=== PATIENT | female | born 1960 | race Caucasian/White ===

== ENCOUNTER 2017-09-26 17:23 | Emergency (ER) | payer BC ==
[~2017-09-26] VITALS: Ht 157.5 cm; Wt 92.0 kg
[2017-09-26 17:47] VITALS: BP 139/76
[2017-09-26] MEDS ORDERED: AMOX-580 PO (18:38)
== END 2017-09-26 18:50 | disposition home or self-care (01) ==
LOC: ER 17:24
DX: J32.9 Chronic sinusitis, unspecified (principal); Z88.6 Allergy status to analgesic agent; Z90.710 Acquired absence of both cervix and uterus
CPT/HCPCS: 99283

== ENCOUNTER 2022-03-25 09:56 | Emergency (ER) | payer BC, MEDICARE, SELFPAY ==
[~2022-03-25] VITALS: Ht 152.4 cm; Wt 57.7 kg
[2022-03-25 10:10] VITALS: BP 171/140
[2022-03-25] MEDS ORDERED: ACYC-128 PO (10:41)
[2022-03-25] MEDS ORDERED: ACYC5CRE2 TOP (10:41)
== END 2022-03-25 10:58 | disposition home or self-care (01) ==
LOC: ER 09:56
DX: R21 Rash and other nonspecific skin eruption (principal); Z88.6 Allergy status to analgesic agent; Z79.899 Other long term (current) drug therapy; Z90.49 Acquired absence of other specified parts of digestive tract
CPT/HCPCS: 99281

== ENCOUNTER 2023-03-09 12:00 | Inpatient (IN) | payer MEDICARE, MEDICAID ==
[~2023-03-09] VITALS: Ht 152.4 cm; Wt 57.3 kg
[~2023-03-09 12:00] MED LIST: ACYC5CRE2 TOP
[2023-03-09] MEDS ORDERED: mag hydrox/Alum hydrox/simeth 30ml oral suspension PO PRN (16:00)
[2023-03-09] MEDS ORDERED: magnesium hydroxide 30ml (MOM) UD suspension PO PRN (16:00)
[2023-03-09] MEDS ORDERED: acetaminophen 325mg tablet PO PRN (16:00)
[2023-03-09] MEDS ORDERED: loperamide 2mg capsule PO PRN (16:00)
--- NOTE | 2023-03-09 17:01 | NUR ---
Admit note: [facility] Pt is unable to articulate any plan for safe fdc, food due to fixed delusion that her sister is coming to get her and has a house for her. Pt has history of schizophrenia. Addendum: 03/09/23 at 1731 by Amari Dailey) TRISTAN Correction: Pt has family history of paranoid schizophrenia.
[2023-03-09] MEDS ORDERED: CETI10TA14 PO (17:12)
[2023-03-09] MEDS ORDERED: ESTR1TAB28 PO (17:12)
[2023-03-09] MEDS ORDERED: ACYC-128 PO (17:12)
[2023-03-09] MEDS ORDERED: FLUT16SP26 BOTHNARES (17:12)
[2023-03-09] MEDS ORDERED: LEVO25TA7 PO (17:12)
[2023-03-09] MEDS: acetaminophen 325mg tablet PO PRN (19:45)
[2023-03-09] MEDS: fluticasone nasal spray 16GM bottle NS SCH ×2 (19:58→20:00)
[2023-03-09 20:00] VITALS: BP 118/66; PULSE 59; RESP 12; TEMP 97.4; O2SAT 100
--- NOTE | 2023-03-10 02:51 | NUR ---
NURSING PROGRESS NOTE: Problem Pt [facility] today on 5150 for gravely disabled from [facility] at 1630. Pt is unable to articulate any plan for safe jail, food due to fixed delusion that her sister is coming to get her and has a house for her. Pt has family history of paranoid schizophrenia. Interventions : Maintained a safe and supportive environment, ensured contract for safety, provided clear and simple instructions, attempted to orient to reality, and maintained Q 15min safety checks. Response : Pt. received in room at change of shift. Pt. was noted to be standing in the doorway of her room looking down the turner. Pt. calm and cooperative. When asked about pain, she points to her lower back and states I think it hurts from when I had shingles. PRN Tylenol provided for pain. She denies SI/HI/AH/VH and states Im 62, and think Sheridan been doing alright. This designer writer asked if she would like to go to snack and she stated no, I probably shouldn't have any more to eat .Pt. remained in her room for the evening and went to bed. Plan : Require a safe and supportive environment. Addendum: 03/10/23 at 0455 by Kary Mandujano RN I have reviewed and agree with all interventions, assessments performed and documented by Melissa KENNEDY.
[2023-03-10] MEDS ORDERED: levoTHYROXINE 25mcg tablet PO SCH (07:00)
[2023-03-10 07:30] VITALS: RESP 14; O2SAT 99
[2023-03-10] MEDS: cetirizine 10mg tablet PO SCH (07:33)
[2023-03-10] MEDS: fluticasone nasal spray 16GM bottle NS SCH ×2 (07:38→21:05)
[2023-03-10] MEDS ORDERED: estradiol 1mg tablet PO SCH (08:00)
[2023-03-10 08:10] VITALS: BP 115/65; PULSE 60; RESP 14; TEMP 98.5; O2SAT 99
[2023-03-10 08:42] LABS: CHOLESTEROL 185 MG/DL (0-200); HDL CHOLESTEROL 62 MG/DL (35-60); HEMOGLOBIN A1C 4.7 % (4.5-6.2); LDL CHOLESTEROL 98 MG/DL (50-100); TRIGLYCERIDES 47 MG/DL (20-135)
--- NOTE | 2023-03-10 17:35 | NUR ---
NURSING PROGRESS NOTE: Problem Pt. admitted on 5150 for GD from [facility]. Pt is unable to articulate any plan for safe care home, food due to fixed delusion that her sister is coming to get her and has a house for her. Pt has family history of paranoid schizophrenia. Interventions : Maintained a safe and supportive environment, ensured contract for safety, provided clear and simple instructions, attempted to orient to reality, and maintained Q 15min safety checks. Response : RN received pt. asleep in bed at start of shift. Pt. awoke shortly after and observed pacing the unit. RN greeted pt. and brought her AM Synthroid. pt. appears distraught and confused, stating, Im supposed to have my Synthroid 4 hours before my breakfast. Pt. also requesting to change her Estrace to night time. Pt. took the rest of her medications, during 1:1 interview pt. states, I just dont know really whats going on Pt. handed RN a copy of her 5150, pt. states, They brought me here, because they say I cant get safe care home or food this is not true. Pt. appears fearful and guarded. Pt. denies SI/HI, A/V hallucinations. Pt. appeared more relaxed in the afternoon, pt. appeared to pace the turner. Pt. reports multiple formed, soft BMs today. Plan : Require a safe and supportive environment.
[2023-03-10 19:00] VITALS: RESP 16; O2SAT 100
[2023-03-10 20:00] VITALS: BP 111/63; PULSE 62; RESP 18; TEMP 96.5; O2SAT 100
[2023-03-10] MEDS: OLANZAPINE 5 MG TABLET PO SCH (21:05)
[2023-03-10] MEDS: estradiol 1mg tablet PO SCH (21:06)
--- NOTE | 2023-03-10 22:46 | NUR ---
NURSING PROGRESS NOTE: Problem Pt. admitted on 5150 for GD from [facility]. Pt is unable to articulate any plan for safe long term, food due to fixed delusion that her sister is coming to get her and has a house for her. Pt has family history of paranoid schizophrenia. Interventions : Maintained a safe and supportive environment, ensured contract for safety, provided clear and simple instructions, attempted to orient to reality, and maintained Q 15min safety checks. Response : Pt received on unit at nurses station. Pt is agreeable to 1:1 assessment. Pt appears disheveled. Pt is alert and oriented x3. Pt speech is clear. Pt states she doesnt belong here because she is not mental. She states her sister had told a lie to her son who put her in this hospital. She states that her boyfriend was also attempting to being seduced by her sister. Director Distribution inquired if she was her own decision maker or has assigned to her sister/son. She stated she makes her own decisions. 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 Director Distribution asked if her belongings were in storage, she omitted answering the question. She identifies herself as gypsy. She states her health is in good working order. She has no heart, lung, gastrointestinal, or urinary deficits. She states she is an avid walker. She was concerned about her thyroid pill during 2100hours medication administration. Director Distribution educated patient it will be administered at 0400hrs. She acknowledged. She refused her fluticasone nasal spray. She was compliant with her other medications. Plan : Require a safe and supportive environment.
[2023-03-11] MEDS: levoTHYROXINE 25mcg tablet PO SCH (04:01)
--- NOTE | 2023-03-11 05:34 | NUR ---
PROCESS DEVELOPMENT MANAGER documentation: I have reviewed and agree with all interventions, assessments performed and documented by Emmanuel KENNEDY.
[2023-03-11 07:00] VITALS: RESP 18; O2SAT 96
[2023-03-11 08:00] VITALS: BP 87/37; PULSE 58; RESP 18; TEMP 98; O2SAT 96
[2023-03-11] MEDS: cetirizine 10mg tablet PO SCH (09:24)
[2023-03-11] MEDS: fluticasone nasal spray 16GM bottle NS SCH ×2 (09:37→20:00)
--- NOTE | 2023-03-11 17:16 | NUR ---
NURSING PROGRESS NOTE: Candy Problem Pt. admitted on 5150 for GD from [facility]. Pt is unable to articulate any plan for safe alf, food due to fixed delusion that her sister is coming to get her and has a house for her. Pt has family history of paranoid schizophrenia. Interventions : Maintained a safe and supportive environment, ensured contract for safety, provided clear and simple instructions, attempted to orient to reality, and maintained Q 15min safety checks. Response : Received Pt in bed sleeping in bed w/o distress at the beginning of this shift. Pt cooperative with vitals and ate well at meals and snacks. Pt engaged well with AM assessment and spoke about her sister taking her boyfriend who is now in [place] and her sister who is coming to pick her up. She states her sister got her in here and she can hear her boyfriend talking through the phone that is in the safe. Pt spent most of day in her room but was seen in halls and community room more in afternoon. Pt made a few phone calls in afternoon as well. She presents as cooperative yet anxious and convinced of her delusions. Pt disagrees with the reasoning for her 5150 and showed this RN her detainment paperwork. Plan : Require a safe and supportive environment.
[2023-03-11 19:00] VITALS: RESP 16; O2SAT 100
[2023-03-11 20:00] VITALS: BP 117/66; PULSE 80; RESP 16; TEMP 97.8; O2SAT 100
[2023-03-11] MEDS: OLANZAPINE 5 MG TABLET PO SCH (20:40)
[2023-03-11] MEDS: estradiol 1mg tablet PO SCH (20:40)
--- NOTE | 2023-03-12 03:54 | NUR ---
NURSING PROGRESS NOTE: Candy Problem Pt. admitted on 5150 for GD from [facility]. Pt is unable to articulate any plan for safe fci, food due to fixed delusion that her sister is coming to get her and has a house for her. Pt has family history of paranoid schizophrenia. Interventions : Maintained a safe and supportive environment, ensured contract for safety, provided clear and simple instructions, attempted to orient to reality, and maintained Q 15min safety checks. Response : Received Pt in room. She spend most of her time in her room. She engages with poem writer. She stated poem writer has not given her Estradiol. Director Fundraising reinforced the pill bottle it was administered from. She appears forgetful. She was compliaant with Hs medication pass. She chose to sleep early this evening. Plan : Require a safe and supportive environment.
[2023-03-12] MEDS: levoTHYROXINE 25mcg tablet PO SCH (04:00)
[2023-03-12 07:00] VITALS: RESP 16; O2SAT 99
[2023-03-12] MEDS: cetirizine 10mg tablet PO SCH (07:38)
[2023-03-12 08:00] VITALS: BP 101/59; PULSE 57; RESP 16; TEMP 98.1; O2SAT 99
[2023-03-12] MEDS: fluticasone nasal spray 16GM bottle NS SCH ×2 (08:00→20:50)
[2023-03-12] MEDS ORDERED: LORazepam 1 MG tablet PO ONE (10:25)
--- NOTE | 2023-03-12 15:19 | NUR ---
CASE MANAGEMENT This Stitcher Tape Controlled Machine spoke to Pt's son today, (Kartik Hassan) who confirmed that she does not have an apartment to go back to. He reported that his mom has been getting more and more paranoid/delusional over the past 6 months to a year. He reported this is all new, Pt was not struggling with kind of thinking in the past and led a pretty functional life until she lost her job in 2020. He has placed multiple APS reports as he is concerned for his mom. She has never been in an mental health hospital before and has no outpatient mental health services in the community set up at this point. He is at a loss as how to help her. Salome Galicia, ROOF SHINGLER
--- NOTE | 2023-03-12 15:24 | NUR ---
NURSING PROGRESS NOTE: Shreya Problem: Pt. admitted on 5150 for GD from [facility]. Pt is unable to articulate any plan for safe usp, food due to fixed delusion that her sister is coming to get her and has a house for her. Pt has family history of paranoid schizophrenia. Interventions : Maintained a safe and supportive environment, ensured contract for safety, provided clear and simple instructions, attempted to orient to reality, and maintained Q 15min safety checks. Response : Pt. received asleep and awoke to take her medications without hesitation. She denies SI,HI,AH,VH and has difficulty staying on topic. Pt. presents with good eye contact, confused, and made delusional statements my sister is out there but never comes in Pt. approached this curriculum writer yelling no one took me to my hearing yesterday Foam Fabricator discussed pt. advocates presence on unit yesterday and she stormed off. Pt. became agitated and was difficult to redirect yelling at staff stating; PRN Ativan administered with good results. She ate all meals in the community room and engaged socially with cohorts. She presents as un kept, refused needing a shower, and was encouraged to brush her hair. MRI scheduled for 1600 Plan : Require a safe and supportive environment.
[2023-03-12] MEDS: acetaminophen 325mg tablet PO PRN (17:28)
[2023-03-12 19:00] VITALS: RESP 16; O2SAT 100
[2023-03-12 20:00] VITALS: BP 124/71; PULSE 85; RESP 16; TEMP 98.6; O2SAT 100
[2023-03-12] MEDS: OLANZAPINE 5 MG TABLET PO SCH (20:49)
[2023-03-12] MEDS: estradiol 1mg tablet PO SCH (20:50)
--- NOTE | 2023-03-13 01:02 | NUR ---
NURSING PROGRESS NOTE: Shreya Problem: Pt. admitted on 5150 for GD from [facility]. Pt is unable to articulate any plan for safe mcc, food due to fixed delusion that her sister is coming to get her and has a house for her. Pt has family history of paranoid schizophrenia. Interventions : Maintained a safe and supportive environment, ensured contract for safety, provided clear and simple instructions, attempted to orient to reality, and maintained Q 15min safety checks. Response : Pt. observed spending most of her time in her room working on [employer]. She agreed to interview. She stated her sister as well as other family members had been on unit today multiple times today. She recognizes publicity writer. She does not have an active plan for food, clothing, or mcc. She states her sister was supposed to pick her up. Pt does not have her sisters address nor a plan how to obtain the address. She believes her son was told lies by her sister to place patient in our care. She has not contacted son per her report. Later in the shift, Pt believes her sister was here. She states she is allergic to mold. She can tell when there is mold in the room by the way she feels. She reports she is in good physical health. Pt is compliant with all medications at medication pass. She reported some difficultly initiating sleep. Plan : Require a safe and supportive environment. Addendum: 03/13/23 at 0533 by Emmanuel Peterson LVN, LVN pt slept 6.75 hours.
[2023-03-13] MEDS: levoTHYROXINE 25mcg tablet PO SCH (03:53)
--- NOTE | 2023-03-13 05:19 | NUR ---
HISTORIOGRAPHY TEACHER documentation: I have reviewed and agree with all interventions, assessments performed and documented by Emmanuel KENNEDY.
[2023-03-13 07:00] VITALS: RESP 16; O2SAT 96
[2023-03-13 08:00] VITALS: BP 103/61; PULSE 53; RESP 16; TEMP 98.4; O2SAT 96
[2023-03-13] MEDS: cetirizine 10mg tablet PO SCH (08:32)
[2023-03-13] MEDS: fluticasone nasal spray 16GM bottle NS SCH ×2 (08:32→20:03)
--- NOTE | 2023-03-13 13:58 | NUR ---
Initial: Pt admit DX psychosis PO mostly ~100% regular diet meeting estimated needs. LBM 03/11 per EMR. No nutrition interventions at this time. Will continue to follow. Rec: 1. continue regular diet 2. bowel care per rx 3. weekly wt Addendum: 03/13/23 at [address] Amended: Links added.
--- NOTE | 2023-03-13 16:03 | NUR ---
NURSING PROGRESS NOTE: Shreya Problem: Pt. admitted on 5150 for GD from [facility]. Pt is unable to articulate any plan for safe nursing home, food due to fixed delusion that her sister is coming to get her and has a house for her. Pt has family history of paranoid schizophrenia. Interventions: Maintained a safe and supportive environment, ensured contract for safety, provided clear and simple instructions, attempted to orient to reality, and maintained Q 15min safety checks. Response: Received Pt in bed sleeping in bed w/o distress at the beginning of this shift. Pt cooperative with vitals and took AM meds w/o issue. Pt ate well throughout the day and showered in the morning. Pt using briefs and she is concerned about urinating. Pt vocal today about her family not being able to contact her, then stating they have abandoned her, and also stating they have been here and were not shown the way up to [facility]. Pt engages well in conversation and assessments, yet gets confused and contradicts herself. Pt anxious about her hearing tomorrow and attempts to explain process in a non-threatening way were marginally effective. Plan : Require a safe and supportive environment.
[2023-03-13 19:04] VITALS: RESP 16; O2SAT 96
[2023-03-13 19:50] VITALS: BP 121/56; PULSE 85; RESP 16; TEMP 99.2; O2SAT 94
[2023-03-13] MEDS: estradiol 1mg tablet PO SCH (20:03)
[2023-03-13] MEDS: OLANZAPINE 5 MG TABLET PO SCH (20:03)
[2023-03-13] MEDS: OLANZapine 2.5MG tablet PO SCH (20:50)
--- NOTE | 2023-03-13 21:57 | NUR ---
NURSING PROGRESS NOTE: Problem: Pt. admitted on 5150 for GD from [facility]. Pt is unable to articulate any plan for safe half-way, food due to fixed delusion that her sister is coming to get her and has a house for her. Pt has family history of paranoid schizophrenia. Interventions: Maintained a safe and supportive environment, ensured contract for safety, provided clear and simple instructions, attempted to orient to reality, and maintained Q 15min safety checks. Response: Pt was in her room at change of shift. Pt having delusions that her son was here earlier today and she was not allowed to see him. Assured patient we have visiting hours and her son would be able to see her during those hours. Pt requested more toilet paper and was provided with toilet paper and states "Nobody ever gives me what I need, I always have to beg." Asked if patient needs anything else besides toilet paper and she states "that is all right now." Pt changed in to scrubs to prepare for bed. Pt has some concerns about not being able to leave after court tomorrow and states she would like her cell phone back when she leaves. Assured patient that when she leaves she will get her belongings back. Pt took HS meds, states she doesnt like nasal spray but knows she needs it. Pt went to sleep after med pass. Plan : Require a safe and supportive environment.
[2023-03-14] MEDS: levoTHYROXINE 25mcg tablet PO SCH (05:20)
[2023-03-14 07:00] VITALS: RESP 16; O2SAT 98
[2023-03-14 08:00] VITALS: BP 95/48; PULSE 61; RESP 16; TEMP 98.3; O2SAT 98
[2023-03-14 08:30] VITALS: BP 105/70
[2023-03-14] MEDS: fluticasone nasal spray 16GM bottle NS SCH ×3 (08:51→21:18)
[2023-03-14] MEDS: cetirizine 10mg tablet PO SCH (08:52)
--- NOTE | 2023-03-14 13:16 | NUR ---
5250 Hearing upheld for GD
--- NOTE | 2023-03-14 18:13 | NUR ---
Nursing Progress Note: Problem : Pt. admitted on 5150 for GD from [facility]. Pt is unable to articulate any plan for safe fdc, food due to fixed delusion that her sister is coming to get her and has a house for her. Pt has family history of paranoid schizophrenia. Interventions : Introduced self and established rapport, maintained a safe and supportive environment, ensured contract for safety, provided clear and simple instructions, attempted to orient to reality, and maintained Q 15min safety checks. Response : Received pt. sleeping in bed at the beginning of the shift, she attended breakfast in the Group Room, and afterwards retreated back to her room where she proceeded to isolate throughout much of the shift. 1:1 was completed at bedside, pt. presents as cooperative, restless, withdrawn, and is forgetful at times. She is A&O X3, not to why she is here. Pt. denies any S/I, H/I, or A/V/PALACIOS. She makes what appear to be paranoid delusional statements regarding what she believes to be wrong doing by her family. She states, "My sister was supposed to pick me up, but my son thought she was in [place] so he called and had me brought in. But my sister was here and was with my boyfriend." Pt. attended court today and her hold was upheld, however she exhibited confusion and thought she was leaving. She began gathering all her belongings, requiring redirection with effectiveness. Pt. exhibited restlessness during the afternoon and came to the nurse's station making multiple requests, again requiring some redirection. She reported in a delusional manner that her son had been on the unit today and had spoken with staff. Pt's son was not on the unit today. Plan : Pt. continues to require medication adjustments and a safe and supportive environment.
[2023-03-14 19:00] VITALS: RESP 16; O2SAT 100
[2023-03-14 19:46] VITALS: BP 133/65; PULSE 81; RESP 16; TEMP 97.9; O2SAT 100
[2023-03-14] MEDS: OLANZapine 2.5MG tablet PO SCH (21:18)
[2023-03-14] MEDS: estradiol 1mg tablet PO SCH (21:18)
--- NOTE | 2023-03-15 00:07 | NUR ---
Nursing Progress Note: Problem : Pt. admitted on 5150 for GD from [facility]. Pt is unable to articulate any plan for safe correction, food due to fixed delusion that her sister is coming to get her and has a house for her. Pt has family history of paranoid schizophrenia. Interventions : Introduced self and established rapport, maintained a safe and supportive environment, ensured contract for safety, provided clear and simple instructions, attempted to orient to reality, and maintained Q 15min safety checks. Response : Received pt. in her room at change of shift where she remained for the night. Pt. is pleasant and cooperative. Pt. denies SI/HI/AH/VH stating "no, I have a strong will because of who my father is". Pt. reports that she has been hand washing her under garments because they will get lost in the washer. Pt. took her night medications and went to bed. Plan : Pt. continues to require medication adjustments and a safe and supportive environment.
[2023-03-15] MEDS: levoTHYROXINE 25mcg tablet PO SCH (05:24)
[2023-03-15 07:00] VITALS: RESP 16; O2SAT 99
[2023-03-15 07:51] VITALS: BP 104/60; PULSE 68; RESP 16; TEMP 98.5; O2SAT 99
[2023-03-15] MEDS: cetirizine 10mg tablet PO SCH (09:00)
[2023-03-15] MEDS: fluticasone nasal spray 16GM bottle NS SCH ×2 (09:00→20:23)
--- NOTE | 2023-03-15 14:53 | NUR ---
Nursing Progress Note: Problem : Pt. admitted on 5150 for GD from [facility]. Pt is unable to articulate any plan for safe care home, food due to fixed delusion that her sister is coming to get her and has a house for her. Pt has family history of paranoid schizophrenia. Interventions : Introduced self and established rapport, maintained a safe and supportive environment, ensured contract for safety, provided clear and simple instructions, attempted to orient to reality, and maintained Q 15min safety checks. Response : Received pt. sleeping in bed at the beginning of the shift, she attended breakfast in the Group Room, and afterwards retreated back to her room where she again remained withdrawn. Pt. does come to the nurses' station at intervals to make requests, and is able to make her needs known. She continues to present as cooperative, restless, withdrawn, and is forgetful at times requiring redirection. Pt. continues to deny all mental health s/s, however continues to make what appear to be delusional statements. She states, "I was supposed to leave yesterday, but he released the wrong Candy. My last name starts with an S." This publicity writer attempted to re-orient pt. to reality, however she remained fixed in this delusion. Pt. also reports what appear to be delusions of persecution and is frequently irritable, reporting that her family and staff members here are all against her. She then states, "I don't belong here, I'm not like these other people." Pt. again tells the story of how she was put in her by her son after her sister failed to pick her up. Also her belief that her boyfriend is cheating on her with her sister. This publicity writer completed that MOCA Assessment with pt. and she appeared distracted throughout the assessment. She continues to present with confusion and forgetfulness, and questioned this publicity writer multiple times regarding when she would have court (pt. had court yesterday) and the outcome of the hearing (which pt. has been informed of multiple times). Pt. was later moved to a new room r/t the admission of another peer, and she tolerated this fairly well. She was observed to be up in the Group Room in the afternoon working on a puzzle with another female peer. Plan : Pt. continues to require medication adjustments and a safe and supportive environment.
[2023-03-15 19:00] VITALS: BP 116/74; PULSE 75; RESP 14; TEMP 97.7; O2SAT 97
[2023-03-15] MEDS: OLANZapine 2.5MG tablet PO SCH (20:17)
[2023-03-15] MEDS: estradiol 1mg tablet PO SCH (20:18)
--- NOTE | 2023-03-15 23:41 | NUR ---
Nursing Progress Note: Problem : Pt. admitted on 5150 for GD from [facility]. Pt is unable to articulate any plan for safe residential, food due to fixed delusion that her sister is coming to get her and has a house for her. Pt has family history of paranoid schizophrenia. Interventions : Introduced self and established rapport, maintained a safe and supportive environment, ensured contract for safety, provided clear and simple instructions, and maintained Q 15min safety checks. Response : Patient is pleasant and cooperative with care; compliant with medication. Patient denied SI, HI, A/VH; no apparent delusions expressed, however, hesitant and minimal responses provided. Patient self isolative but observed completing a puzzle and participated in HS snack prior to bed; observed sleeping and does not appear to be having difficulty. Plan : Pt. continues to require medication adjustments and a safe and supportive environment. Addendum: 03/16/23 at 0339 by Rocio Quintanilla RN Patient woke up c/o bugs being in her bed; refuses to accept reality orientation. She is irritable and stating she "was left in that shit hole" pointing to her bedroom.
[2023-03-16] MEDS: levoTHYROXINE 25mcg tablet PO SCH (03:41)
[2023-03-16 07:00] VITALS: RESP 12; O2SAT 99
[2023-03-16 08:00] VITALS: BP 94/49; PULSE 57; RESP 12; TEMP 98.5; O2SAT 99
[2023-03-16] MEDS: OLANZapine 2.5MG tablet PO SCH ×2 (08:33→21:38)
[2023-03-16] MEDS: cetirizine 10mg tablet PO SCH (08:34)
[2023-03-16] MEDS: fluticasone nasal spray 16GM bottle NS SCH ×2 (10:39→19:41)
[2023-03-16 11:00] VITALS: BP 115/71; PULSE 82; RESP 16
--- NOTE | 2023-03-16 15:21 | NUR ---
Nursing Progress Note: Shreya Problem: Pt. admitted on 5150 for GD from [facility]. Pt is unable to articulate any plan for safe fpc, food due to fixed delusion that her sister is coming to get her and has a house for her. Pt has family history of paranoid schizophrenia. Interventions: Introduced self and established rapport, maintained a safe and supportive environment, ensured contract for safety, provided clear and simple instructions, attempted to orient to reality, and maintained Q 15 min safety checks. Response: Patient received sleeping in her room at change of shift with no s/s of distress. Respirations even, unlabored. She awoke before breakfast and was receptive to 1:1 assessment. Pt noted making delusional statements, endorsing AH of her boyfriend saying things to her. Pt stating that she can hear what he says unless the room is too loud. Pt reporting to staff that she is in a relationship with Harvey Higginbotham from [employer]. She was noted yelling in her room this morning requiring staff to intervene. Pt endorsing that her room was too cold. She joined for breakfast in the group room with peers. Pt is A&O x3, not to event, with fixed delusions noted. She denies VH, SI or HI. Patient reported that she has been sleeping much better and drinking water. She desires to leave and go home with her boyfriend soon. Pt was observed to be present on the unit the majority of the shift. She was noted putting together a puzzle in the group room throughout the shift. Pt joined with peers for all meal and snack times. Plan: Pt. continues to require medication adjustments and a safe and supportive environment.
[2023-03-16 19:10] VITALS: RESP 16; O2SAT 98
[2023-03-16 19:47] VITALS: BP 124/40; PULSE 77; RESP 16; TEMP 98.3; O2SAT 98
[2023-03-16 20:30] VITALS: BP 100/62
[2023-03-16] MEDS: estradiol 1mg tablet PO SCH (21:38)
--- NOTE | 2023-03-17 01:29 | NUR ---
Nursing Progress Note: Shreya Problem: Pt. admitted on 5150 for GD from [facility]. Pt is unable to articulate any plan for safe snf, food due to fixed delusion that her sister is coming to get her and has a house for her. Pt has family history of paranoid schizophrenia. Interventions: Introduced self and established rapport, maintained a safe and supportive environment, ensured contract for safety, provided clear and simple instructions, attempted to orient to reality, and maintained Q 15 min safety checks. Response: Received report from AM shift. Pt in room washing her socks in the sink. Pt reported her clothes smells clean when she washes it in the sink and hung dry. Pt pleasant and cooperative. Pt tolerated meds with no issues noted. Pt denies SI, HI, AH/VH. Pt denies paranoia. Pt makes delusional statements, stating her son and sister reported her being delusional is why she is here. Pt reported her boyfriend is Harvey Higginbotham, a senior who makes music. Pt reported her sister wants her in here to steal her boyfriend. Pt reported she will be discharged tomorrow, she will be going home to her sisters house or home with her boyfriend. Pt reported her boyfriend will be picking her up in an airplane. Pt reported her boyfriend met the doctor and that she is not making stuff up. Pt isolate self in room this shift. No s/s of distress at this time. Plan: Pt. continues to require medication adjustments and a safe and supportive environment.
[2023-03-17] MEDS: levoTHYROXINE 25mcg tablet PO SCH (04:10)
[2023-03-17 07:29] VITALS: BP 94/52; PULSE 54; RESP 16; TEMP 98.2; O2SAT 97
[2023-03-17 07:30] VITALS: RESP 16; O2SAT 97
[2023-03-17] MEDS: fluticasone nasal spray 16GM bottle NS SCH ×2 (08:00→20:40)
[2023-03-17] MEDS: OLANZapine 2.5MG tablet PO SCH ×2 (08:13→20:40)
[2023-03-17] MEDS: cetirizine 10mg tablet PO SCH (08:13)
--- NOTE | 2023-03-17 17:49 | NUR ---
Nursing Progress Note: Problem: Pt. admitted on 5150 for GD from [facility]. Pt is unable to articulate any plan for safe detention, food due to fixed delusion that her sister is coming to get her and has a house for her. Pt has family history of paranoid schizophrenia. Interventions: Introduced self and established rapport, maintained a safe and supportive environment, ensured contract for safety, provided clear and simple instructions, attempted to orient to reality, and maintained Q 15 min safety checks. Response: RN received pt. asleep at start of shift. Pt. awoke and took all medications. Pt. ate all meals in the community room. 1:1 done at bedside, pt. denies all psych symptoms, pt. states, I dont really know why they are keeping me here, whatever it is they say on that paper Is not true. Pt. observed putting together puzzles in the community room and watching TV. Pt. observed socializing with female peers. Plan: Pt. continues to require medication adjustments and a safe and supportive environment.
[2023-03-17 19:42] VITALS: BP 103/55; PULSE 67; RESP 16; TEMP 98.7; O2SAT 100
[2023-03-17] MEDS: estradiol 1mg tablet PO SCH (20:40)
--- NOTE | 2023-03-18 04:45 | NUR ---
Nursing Progress Note: Problem : Pt. admitted on 5150 for GD from [facility]. Pt is unable to articulate any plan for safe fci, food due to fixed delusion that her sister is coming to get her and has a house for her. Pt has family history of paranoid schizophrenia. Interventions : Introduced self and established rapport, maintained a safe and supportive environment, ensured contract for safety, provided clear and simple instructions, and maintained Q 15min safety checks. Response : Patient pleasant and cooperative with care; compliant with medication. Denied SI, HI, A/VH; no apparent delusions expressed. She continues to self isolate but participated in HS snack prior to bed; observed sleeping and does not appear to be having difficulty. Plan : Pt. continues to require medication adjustments and a safe and supportive environment.
[2023-03-18] MEDS: levoTHYROXINE 25mcg tablet PO SCH (04:59)
[2023-03-18 07:30] VITALS: BP 103/56; PULSE 53; RESP 16; TEMP 98.1; O2SAT 98
[2023-03-18] MEDS: OLANZapine 2.5MG tablet PO SCH ×2 (07:30→20:15)
[2023-03-18] MEDS: cetirizine 10mg tablet PO SCH (07:30)
[2023-03-18] MEDS: fluticasone nasal spray 16GM bottle NS SCH ×2 (08:00→20:16)
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
[2023-03-18 19:17] VITALS: BP 109/58; PULSE 78; RESP 16; TEMP 98.3; O2SAT 100
[2023-03-18] MEDS: estradiol 1mg tablet PO SCH (20:16)
--- NOTE | 2023-03-19 02:46 | NUR ---
Nursing Progress Note: Problem : Pt. admitted on 5150 for GD from [facility]. Pt is unable to articulate any plan for safe assisted, food due to fixed delusion that her sister is coming to get her and has a house for her. Pt has family history of paranoid schizophrenia. Interventions : Introduced self and established rapport, maintained a safe and supportive environment, ensured contract for safety, provided clear and simple instructions, and maintained Q 15min safety checks. Response : Patient pleasant and cooperative with care; compliant with medication. She c/o "tinnitus" d/t "mold allergy." Patient denied SI, HI, A/VH; conversations are circumstantial at times and she appears to be expressing delusional thought content. She reported the doctor was going to discharge her a couple days ago but they sent the wrong Candy home. Patient continues to report she is going to live with her son in his apartment. She continued to express paranoid thoughts about her sister going through her storage and taking her belongings. Patient was social with peers and participated in HS snack prior to bed; observed sleeping and does not appear to be having difficulty. Plan : Pt. continues to require medication adjustments and a safe and supportive environment.
[2023-03-19] MEDS: levoTHYROXINE 25mcg tablet PO SCH (04:11)
[2023-03-19 07:30] VITALS: RESP 16; O2SAT 98
[2023-03-19 07:43] VITALS: BP 103/61; PULSE 57; RESP 16; TEMP 98.6; O2SAT 98
[2023-03-19] MEDS: cetirizine 10mg tablet PO SCH (08:30)
[2023-03-19] MEDS: fluticasone nasal spray 16GM bottle NS SCH ×2 (08:30→20:27)
[2023-03-19] MEDS: OLANZapine 2.5MG tablet PO SCH (08:30)
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
[2023-03-19 19:15] VITALS: BP 124/74; PULSE 66; RESP 16; TEMP 97.9; O2SAT 100
[2023-03-19 19:27] VITALS: RESP 16; O2SAT 100
[2023-03-19] MEDS: estradiol 1mg tablet PO SCH (20:26)
[2023-03-19] MEDS: OLANZAPINE 5 MG TABLET PO SCH (20:26)
--- NOTE | 2023-03-19 23:08 | NUR ---
Nursing Progress Note: Problem : Pt. admitted on 5150 for GD from [facility]. Pt is unable to articulate any plan for safe snf, food due to fixed delusion that her sister is coming to get her and has a house for her. Pt has family history of paranoid schizophrenia. Interventions : Introduced self and established rapport, maintained a safe and supportive environment, ensured contract for safety, provided clear and simple instructions, and maintained Q 15min safety checks. Response : Patient pleasant and cooperative with care; compliant with medication. Patient denied SI, HI, A/VH; appears to be expressing delusional thought content. Patient social with peers and participated in HS snack prior to bed; observed sleeping and does not appear to be having difficulty. Plan : Pt. continues to require medication adjustments and a safe and supportive environment. Addendum: 03/20/23 at 0312 by Kary Mandujano RN FINANCIAL ADVISOR TRAINEE documentation: I have reviewed and agree with all interventions, assessments performed and documented by NEIL KENNEDY.
[2023-03-20] MEDS: levoTHYROXINE 25mcg tablet PO SCH (03:38)
[2023-03-20] MEDS: OLANZapine 2.5MG tablet PO SCH (07:40)
[2023-03-20] MEDS: fluticasone nasal spray 16GM bottle NS SCH ×2 (07:40→20:15)
[2023-03-20] MEDS: cetirizine 10mg tablet PO SCH (07:40)
[2023-03-20 07:48] VITALS: BP 109/65; PULSE 60; RESP 16; TEMP 97.8; O2SAT 98
[2023-03-20 07:49] VITALS: RESP 16; O2SAT 98
--- NOTE | 2023-03-20 13:15 | NUR ---
Nursing Progress Note: Problem : Pt. admitted on 5150 for GD from [facility]. Pt is unable to articulate any plan for safe mcc, food due to fixed delusion that her sister is coming to get her and has a house for her. Pt has family history of paranoid schizophrenia. Interventions : Introduced self and established rapport, maintained a safe and supportive environment, ensured contract for safety, provided clear and simple instructions, and maintained Q 15min safety checks. Response : Upon arrival to shift noted patient to be sleeping. Calm and quiet this morning. Walking halls and keeping to herself. Pleasant in comparison to yesterday. Delusional statements about discharge plan, The doctor forgot about me for 6 days and finally found my discharge paperwork. Im going home tomorrow. My son is coming to get me and take me home. Denies forgetfulness, SI, HI, AH or VH. Compliant with AM meds. No PRNs given. Will continue to monitor. Plan : Pt. continues to require medication adjustments and a safe and supportive environment.
--- NOTE | 2023-03-20 13:22 | NUR ---
Transferred care to Alan HUDSON. Reported off.
[2023-03-20 19:27] VITALS: BP 111/66; PULSE 64; RESP 16; TEMP 97.5; O2SAT 100
[2023-03-20] MEDS: OLANZAPINE 5 MG TABLET PO SCH (20:15)
[2023-03-20] MEDS: estradiol 1mg tablet PO SCH (20:15)
[2023-03-20] MEDS ORDERED: acetaminophen 325mg tablet PO PRN ×2 (21:15)
[2023-03-20] MEDS ORDERED: loperamide 2mg capsule PO PRN (21:15)
[2023-03-20] MEDS ORDERED: mag hydrox/Alum hydrox/simeth 30ml oral suspension PO PRN (21:15)
[2023-03-20] MEDS ORDERED: magnesium hydroxide 30ml (MOM) UD suspension PO PRN (21:15)
--- NOTE | 2023-03-21 00:11 | NUR ---
Nursing Progress Note: Problem : Pt. admitted on 5150 for GD from [facility]. Pt is unable to articulate any plan for safe senior living, food due to fixed delusion that her sister is coming to get her and has a house for her. Pt has family history of paranoid schizophrenia. Interventions : Introduced self and established rapport, maintained a safe and supportive environment, ensured contract for safety, provided clear and simple instructions, and maintained Q 15min safety checks. Response : Patient pleasant and cooperative with care; compliant with medication. Patient denied SI, HI, A/VH. She handed film writer an address explaining that it was her sister's current address and she plans to stay with her sister "for a little while." She continued on about an outstanding bill with [employer]. Patient social with her roommate but remained in her room and refused HS snack. Observed sleeping and does not appear to be having difficulty. Plan : Pt. continues to require medication adjustments and a safe and supportive environment.
[2023-03-21] MEDS: levoTHYROXINE 25mcg tablet PO SCH (04:18)
[2023-03-21 07:00] VITALS: RESP 18; O2SAT 98
[2023-03-21 07:49] VITALS: BP 93/59; PULSE 61; RESP 18; TEMP 97.8; O2SAT 98
[2023-03-21 08:16] LABS: CHOL/HDL RATIO 2.9 (0.00-4.99); CHOLESTEROL 195 MG/DL (0-200); HDL CHOLESTEROL 68 MG/DL (35-60); LDL CHOLESTEROL 111 MG/DL (50-100); TRIGLYCERIDES 31 MG/DL (20-135)
[2023-03-21] MEDS: OLANZapine 2.5MG tablet PO SCH (08:45)
[2023-03-21] MEDS: cetirizine 10mg tablet PO SCH (08:45)
[2023-03-21] MEDS: fluticasone nasal spray 16GM bottle NS SCH ×2 (08:46→21:13)
--- NOTE | 2023-03-21 15:57 | NUR ---
Nursing Progress Note: Problem: Pt. admitted on 5150 for GD from [facility]. Pt is unable to articulate any plan for safe long-term, food due to fixed delusion that her sister is coming to get her and has a house for her. Pt has family history of paranoid schizophrenia. Interventions: Provided 1:1 morning assessment with therapeutic communication and active listening, medication administration/education/monitoring, provided clear and simple instructions, and maintained Q 15min safety checks. Response: Patient pacing around in her room at the start. Pt compliant with assessment and medications. Pt insist upon discharge she will be staying in an apartment on [address]. She provided this marketing writer the address. Pt complains, "I am bored." She is observed socializing with roommate in the afternoon. Arnoldo A/V hallucinations. Denies SI or plan. Plan: Pt. continues to require medication adjustments and a safe and supportive environment.
[2023-03-21 19:00] VITALS: RESP 16; O2SAT 99
--- NOTE | 2023-03-21 19:33 | NUR ---
Nursing Progress Note: Problem: Pt. admitted on 5150 for GD from [facility]. Pt is unable to articulate any plan for safe long-term, food due to fixed delusion that her sister is coming to get her and has a house for her. Pt has family history of paranoid schizophrenia. Interventions: Provided 1:1 Evening assessment with therapeutic communication and active listening, medication administration/education/monitoring, provided clear and simple instructions, and maintained Q 15min safety checks. Response: Patient is in her room following shift change. 1:1 Interview at bedside. Patient washing her socks in the sink.The patient makes direct eye contact. She speaks in a soft voice. Patient tells this lead technical writer that she is reading a book about Brad Pichardo. "It's not the Elena version." Patient tells this lead technical writer, "I'm feeling really good." She states a normal bowel movement today. She presents with mild delusions, "I might get out of here tomorrow." The patient describes "floaters," in her field of vision, both eyes, nothing new. She denies any S/I, H/I, she denies hallucinations. Plan: Pt. continues to require medication adjustments and a safe and supportive environment.
[2023-03-21 20:00] VITALS: BP 122/58; PULSE 80; RESP 16; TEMP 98.1; O2SAT 100
[2023-03-21] MEDS: estradiol 1mg tablet PO SCH (21:12)
[2023-03-21] MEDS: OLANZAPINE 5 MG TABLET PO SCH (21:13)
[2023-03-22] MEDS: levoTHYROXINE 25mcg tablet PO SCH (04:50)
[2023-03-22 07:00] VITALS: RESP 15; O2SAT 97
[2023-03-22 07:41] VITALS: BP 101/61; PULSE 49; RESP 15; TEMP 97.8; O2SAT 97
[2023-03-22] MEDS: fluticasone nasal spray 16GM bottle NS SCH ×2 (08:00→21:09)
[2023-03-22] MEDS: OLANZapine 2.5MG tablet PO SCH (08:23)
[2023-03-22] MEDS: cetirizine 10mg tablet PO SCH (08:23)
--- NOTE | 2023-03-22 16:09 | NUR ---
Nursing Progress Note: Candy Problem: Pt. admitted on 5150 for GD from [facility]. Pt is unable to articulate any plan for safe halfway, food due to fixed delusion that her sister is coming to get her and has a house for her. Pt has family history of paranoid schizophrenia. Interventions: Provided 1:1 Evening assessment with therapeutic communication and active listening, medication administration/education/monitoring, provided clear and simple instructions, and maintained Q 15min safety checks. Response: Pt awoke at 0645 and nurse introduced herself. Pt. was instantly irritable about her stay here, repeatedly stated she is being held against her will and was requesting a new doctor. Pt is upset because she is being withheld from her family and friends. 1:1 was done at bedside and medications were administered with no issues. Pt denies all MH symptoms. Pt ate meals in the dining room, attended snack and showered this shift. Plan: Pt. continues to require medication adjustments and a safe and supportive environment.
[2023-03-22 19:00] VITALS: BP 116/72; PULSE 74; RESP 14; TEMP 98; O2SAT 100
[2023-03-22] MEDS: OLANZAPINE 5 MG TABLET PO SCH (21:05)
[2023-03-22] MEDS: estradiol 1mg tablet PO SCH (21:09)
[2023-03-23] MEDS: levoTHYROXINE 25mcg tablet PO SCH (05:11)
--- NOTE | 2023-03-23 05:11 | NUR ---
Nursing Progress Note: Problem: Pt. admitted on 5150 for GD from [facility]. Pt is unable to articulate any plan for safe group home, food due to fixed delusion that her sister is coming to get her and has a house for her. Pt has family history of paranoid schizophrenia. Interventions: Provided 1:1 Evening assessment with therapeutic communication and active listening, medication administration/education/monitoring, provided clear and simple instructions, and maintained Q 15min safety checks. Response: Nurse received pt. awake sitting on her bed in her room. 1:1 done at her bedside and night medications were administered with no issues. Pt continues to deny all mental health symptoms. Pt stating she wants to go home. Pt. states her boyfriend Petros Higginbotham will be picking her up once she is discharged and he is currently residing with her sister. It is unknown if these are true or delusional statements. Pt did eat dinner and was calm and cooperative this shift. Pt slept with no issues. Plan: Pt. continues to require medication adjustments and a safe and supportive environment.
[2023-03-23 07:00] VITALS: RESP 14; O2SAT 97
[2023-03-23 08:00] VITALS: BP 97/55; PULSE 56; RESP 14; TEMP 97.7; O2SAT 97
[2023-03-23] MEDS: cetirizine 10mg tablet PO SCH (08:37)
[2023-03-23] MEDS: OLANZapine 2.5MG tablet PO SCH (08:37)
[2023-03-23] MEDS: fluticasone nasal spray 16GM bottle NS SCH ×2 (08:38→20:00)
--- NOTE | 2023-03-23 15:48 | NUR ---
Nursing Progress Note: Shreya Problem: Pt. admitted on 5150 for GD from [facility]. Pt is unable to articulate any plan for safe senior living, food due to fixed delusion that her sister is coming to get her and has a house for her. Pt has family history of paranoid schizophrenia. Interventions: Introduced self and established rapport, maintained a safe and supportive environment, ensured contract for safety, provided clear and simple instructions, attempted to orient to reality, and maintained Q 15 min safety checks. Response: Received Pt in bed and appeared to be sleeping w/o distress at the beginning of this shift. Pt woke for vitals and was cooperative with AM meds and ate breakfast well. Pt engages in conversation, which quickly turns to her wanting to leave. She reports her release papers have been sent downstairs six times. the saw me talking to myself, well I lived by myself for a long time. Pt denies SI/HI, A/V hallucinations. Pt spent time in community room and talked with her roommate until roommate was discharged. She ate meals well and responded well to active listening and caring responses. Plan: Pt. continues to require medication adjustments and a safe and supportive environment.
[2023-03-23 19:00] VITALS: BP 115/55; PULSE 64; RESP 14; TEMP 97.9; O2SAT 97
[2023-03-23] MEDS: OLANZAPINE 5 MG TABLET PO SCH (20:04)
[2023-03-23] MEDS: estradiol 1mg tablet PO SCH (20:04)
--- NOTE | 2023-03-23 23:01 | NUR ---
Nursing Progress Note: Shreya Problem: Pt. admitted on 5150 for GD from [facility]. Pt is unable to articulate any plan for safe half-way, food due to fixed delusion that her sister is coming to get her and has a house for her. Pt has family history of paranoid schizophrenia. Interventions: Introduced self and established rapport, maintained a safe and supportive environment, ensured contract for safety, provided clear and simple instructions, attempted to orient to reality, and maintained Q 15 min safety checks. Response: Pt. in her room at change of shift. She is pleasant and cooperative. Pt. denies SI/HI/AH/VH stating "no, I've never had a problem with that". Pt. took her night medications but did refuse her nasal spray stating "I don't think I need it because I'm allergic to mold and clean things". Pt. ate evening snack in her room and remained there for the night. Observed sleeping with no issues. Plan: Pt. continues to require medication adjustments and a safe and supportive environment.
[2023-03-24] MEDS: levoTHYROXINE 25mcg tablet PO SCH (04:22)
[2023-03-24 07:13] VITALS: BP 100/70; PULSE 50; RESP 16; TEMP 98; O2SAT 98
[2023-03-24 07:45] VITALS: RESP 16; O2SAT 98
[2023-03-24] MEDS: cetirizine 10mg tablet PO SCH (08:13)
[2023-03-24] MEDS: OLANZapine 2.5MG tablet PO SCH (08:13)
[2023-03-24] MEDS: fluticasone nasal spray 16GM bottle NS SCH ×2 (08:30→20:00)
--- NOTE | 2023-03-24 09:50 | NUR ---
F/u 03/24: Pt PO mostly ~100% regular diet meeting estimated needs. LBM 03/22 per EMR. No nutrition interventions at this time. Will continue to follow. Rec: 1. continue regular diet 2. bowel care per rx 3. weekly wt Addendum: 03/24/23 at [address] Amended: Links added.
--- NOTE | 2023-03-24 14:32 | NUR ---
Nursing Progress Note: Problem: Pt. admitted on 5150 for GD from [facility]. Pt is unable to articulate any plan for safe fpc, food due to fixed delusion that her sister is coming to get her and has a house for her. Pt has family history of paranoid schizophrenia. Interventions: Introduced self and established rapport, maintained a safe and supportive environment, ensured contract for safety, provided clear and simple instructions, attempted to orient to reality, and maintained Q 15 min safety checks. Response: Upon arrival to shift noted patient sleeping. Compliant with AM meds. Reports, This is the 8th time the doctor has confused me with the other, Shreya Hassan and discharged her instead, and Im mad. We have the same name and middle name. I told them to check our birthdates. I think shes my cousin. Sheridan never met her. Reports, Im mad at my sister. Shes the one who lied about it and my son believed the lie and thats and why Im still in here. Im not forgetful and I dont have any mental issues. RN offers support and support that shes having difficulty with her family. Patient states, Me too, I only have one sister. My parents last month. Patient denies anxiety or depression. Denies SI, HI, AH or VH. Noted to be well-groomed and wearing clean street clothes. Appears to be sad. Is calm and cooperative. Seen walking halls throughout the day. Will continue to monitor. Plan: Pt. continues to require medication adjustments and a safe and supportive environment.
[2023-03-24 19:00] VITALS: RESP 18; O2SAT 100
[2023-03-24 20:00] VITALS: BP 122/74; PULSE 64; RESP 18; TEMP 97.2; O2SAT 100
[2023-03-24] MEDS: estradiol 1mg tablet PO SCH (20:45)
[2023-03-24] MEDS: OLANZAPINE 5 MG TABLET PO SCH (20:45)
--- NOTE | 2023-03-24 23:57 | NUR ---
Nursing Progress Note: Problem: Pt. admitted on 5150 for GD from [facility]. Pt is unable to articulate any plan for safe correction, food due to fixed delusion that her sister is coming to get her and has a house for her. Pt has family history of paranoid schizophrenia. Interventions: Introduced self and established rapport, maintained a safe and supportive environment, ensured contract for safety, provided clear and simple instructions, attempted to orient to reality, and maintained Q 15 min safety checks. Response: Pt. received walking the unit at change of shift. Pt. was later observed sitting in the community room watching TV. Pt. participated in evening snack. Pt. was in room reading when this assembly instructions writer entered her room w/ night medications. She is medication compliant. Pt. is pleasant and cooperative. She continues to deny SI/HI/AH/VH. She then states "the only thing I ask for are apologies. You know they lied, my son and my sister. That's what got me here". Pt. observed and appears to be sleeping without difficulty. Plan: Pt. continues to require medication adjustments and a safe and supportive environment.
[2023-03-25] MEDS: levoTHYROXINE 25mcg tablet PO SCH (04:41)
[2023-03-25 07:00] VITALS: RESP 15; O2SAT 97
[2023-03-25] MEDS: cetirizine 10mg tablet PO SCH (07:57)
[2023-03-25] MEDS: OLANZapine 2.5MG tablet PO SCH (07:57)
[2023-03-25] MEDS: fluticasone nasal spray 16GM bottle NS SCH ×2 (07:57→20:30)
[2023-03-25 08:00] VITALS: BP 93/44; PULSE 55; RESP 15; TEMP 97.2; O2SAT 97
--- NOTE | 2023-03-25 15:00 | NUR ---
CASE MANAGEMENT Spoke to Pt's son today regarding her discharge plan. He reported that there is no way he can help her find housing at this time. He stated, "Maybe she will just have to fail out on the streets so she can get conserved". Asked him if he or his siblings had looked into Probate Conservatorship. He reported that he had and that it cost $800 dollars to apply and neither he or his brother has the money for that. He reported he applied to [employer] for his mom but was told last week that it is up to a year wait. He reported that the problem with his mother is she believes that her boyfriend is going to get her and he cannot convince her otherwise or get her to look into other options. Salome Galicia, VEGETABLE VENDOR
--- NOTE | 2023-03-25 16:04 | NUR ---
Nursing Progress Note: Shreya Problem: Pt. admitted on 5150 for GD from [facility]. Pt is unable to articulate any plan for safe assisted, food due to fixed delusion that her sister is coming to get her and has a house for her. Pt has family history of paranoid schizophrenia. Interventions: Introduced self and established rapport, maintained a safe and supportive environment, ensured contract for safety, provided clear and simple instructions, attempted to orient to reality, and maintained Q 15 min safety checks. Response: Received Pt in bed and sleeping w/o distress at the beginning of this shift. Pt woke for vitals and was cooperative. She took AM meds and ate breakfast well. Pt was in a pleasant mood, yet quickly reverts to accusing the Dr of sending her release papers to the wrong unit. Today she is convinced that a relative with the same name is here on the unit. I dont know where her room is. Pt denies SI/HI, A/V hallucinations. Pt does not believe anything she says is delusional. She ate well and was seen in halls and engaged in snack times. She has a notebook she writes in and talked with her roommate. Plan: Pt. continues to require medication adjustments and a safe and supportive environment.
[2023-03-25 19:00] VITALS: RESP 16; O2SAT 99
[2023-03-25 20:00] VITALS: BP 111/66; PULSE 74; RESP 16; TEMP 98.5; O2SAT 99
[2023-03-25] MEDS: OLANZAPINE 5 MG TABLET PO SCH (20:30)
[2023-03-25] MEDS: estradiol 1mg tablet PO SCH (20:30)
--- NOTE | 2023-03-26 01:32 | NUR ---
Nursing Progress Note: Candy Problem: Pt. admitted on 5150 for GD from [facility]. Pt is unable to articulate any plan for safe fpc, food due to fixed delusion that her sister is coming to get her and has a house for her. Pt has family history of paranoid schizophrenia. Interventions: Introduced self and established rapport, maintained a safe and supportive environment, ensured contract for safety, provided clear and simple instructions, attempted to orient to reality, and maintained Q 15 min safety checks. Response: Received Pt in her room after eating dinner. Pt calm and mildly irritated at being on [facility]. She was cooperative with vitals and took HS meds w/o issue. Pt irritated at doctors making mistakes r/t her release. Overall pleasant mood, yet remains having no insight into why she is in on [facility], blaming others is a theme. Pt attempts to interact with her roommate and denies MH sxs. Pt reminded this RN about her 0400 sythroid and how important it was that she take it 4 hrs before eating. Pt went to bed and remains sleeping at this time. Will continue to monitor. Plan: Pt. continues to require medication adjustments and a safe and supportive environment.
[2023-03-26] MEDS: levoTHYROXINE 25mcg tablet PO SCH (04:06)
[2023-03-26] MEDS: fluticasone nasal spray 16GM bottle NS SCH ×2 (07:39→20:33)
[2023-03-26] MEDS: OLANZapine 2.5MG tablet PO SCH (07:39)
[2023-03-26] MEDS: cetirizine 10mg tablet PO SCH (07:39)
[2023-03-26 07:49] VITALS: RESP 16; O2SAT 98
[2023-03-26 08:00] VITALS: BP 108/56; PULSE 73; RESP 16; TEMP 98.3; O2SAT 98
[2023-03-26 09:23] VITALS: BP 108/56; PULSE 73; RESP 16; TEMP 98.3; O2SAT 98
--- NOTE | 2023-03-26 15:11 | NUR ---
Nursing Progress Note: Problem: Pt. admitted on 5150 for GD from [facility]. Pt is unable to articulate any plan for safe fpc, food due to fixed delusion that her sister is coming to get her and has a house for her. Pt has family history of paranoid schizophrenia. Interventions: Introduced self and established rapport, maintained a safe and supportive environment, ensured contract for safety, provided clear and simple instructions, attempted to orient to reality, and maintained Q 15 min safety checks. Response: Upon arrival to shift noted patient sleeping. Later on assessment reports, I want to switch doctors because they keep sending the wrong Candy Scarratt home. Denies forgetfulness or MH s/sx. Asked what she knew about her plan of care. States my son will pick me up and she will be staying with her boyfriend Harvey Higginbotham who is in the [employer]. Compliant with AM meds. Walked halls today and supported her cohort. Able to make needs known. Will continue to monitor. Plan: Pt. continues to require medication adjustments and a safe and supportive environment.
[2023-03-26] MEDS ORDERED: bisacodyl 10mg suppository rectal RC ONE (18:55)
[2023-03-26 19:00] VITALS: RESP 18; O2SAT 100
[2023-03-26] MEDS: OLANZAPINE 5 MG TABLET PO SCH (20:34)
[2023-03-26] MEDS: estradiol 1mg tablet PO SCH (20:34)
[2023-03-26 20:41] VITALS: BP 137/73; PULSE 66; RESP 18; TEMP 97.7; O2SAT 100
[2023-03-27] MEDS: levoTHYROXINE 25mcg tablet PO SCH (04:26)
--- NOTE | 2023-03-27 04:49 | NUR ---
Nursing Progress Note: Problem: Pt. admitted on 5150 for GD from [facility]. Pt is unable to articulate any plan for safe assisted, food due to fixed delusion that her sister is coming to get her and has a house for her. Pt has family history of paranoid schizophrenia. Interventions: Introduced self and established rapport, maintained a safe and supportive environment, ensured contract for safety, provided clear and simple instructions, attempted to orient to reality, and maintained Q 15 min safety checks. Response: Received pt. in hallway. Pt is calm and cooperative with care. Pt is stating she hasnt had a BM and is asking what she can do. [employer] Director gave pt. the option of having a suppository or waiting until she can have MOM again. Pt decided to think about it. I had a small BM but is was sticky and black. I had cancer before, how are you going to check for it. [employer] Director encouraged pt. to try the suppository first. Pt came out a short time later and stated, I just had a BM. Pt would not elaborate on size or color. Pt denies SI/HI/AVH. Pt ate snack in day room and was observed watch a movie and interacting with peers. Pt is medication compliant. Monitor for safety. Plan: Pt. continues to require medication adjustments and a safe and supportive environment.
[2023-03-27 07:00] VITALS: RESP 16; O2SAT 97
[2023-03-27] MEDS: cetirizine 10mg tablet PO SCH (07:51)
[2023-03-27] MEDS: OLANZapine 2.5MG tablet PO SCH (07:51)
[2023-03-27] MEDS: fluticasone nasal spray 16GM bottle NS SCH (07:52)
[2023-03-27 08:00] VITALS: BP 112/64; PULSE 57; RESP 16; TEMP 97.4; O2SAT 97
--- NOTE | 2023-03-27 08:43 | NUR ---
Nutrition Consult "beef hurts stomach, needs more veggies, constipation noted": Pt LBM 03/26 receiving PRN MoM 03/26 PO 75-100% regular diet meeting estimated needs. ROMI d/w RN today who reports pt has no such dietary issues or requests at this time. Given this, no nutrition interventions at this time. Addendum: 03/27/23 at [address] Amended: Links added.
[2023-03-27] MEDS ORDERED: FLUT16SP26 BOTHNARES (15:57)
[2023-03-27] MEDS ORDERED: OLAN15TA35 PO (15:57)
[2023-03-27] MEDS ORDERED: ACYC-128 PO (15:57)
[2023-03-27] MEDS ORDERED: LEVO25TA7 PO (15:57)
[2023-03-27] MEDS ORDERED: CETI10TA14 PO (15:57)
[2023-03-27] MEDS ORDERED: ESTR1TAB28 PO (15:57)
--- NOTE | 2023-03-27 17:27 | NUR ---
Nursing Discharge Note Pt discharged from [facility] at 1455 and walked to [facility] to be driven home by her son. Pt in pleasant mood and happy she is leaving. Pt in no acute physical or emotional distress and understands her discharge plan and instructions. Pt did not want or need nicotine replacement and her meds were faxed to her pharmacy.
== END 2023-03-27 16:55 | disposition home or self-care (01) | DRG 885 ==
LOC: ADULT MH 12:00
PROVIDERS: ADMIT Psychiatry & Neurology Psychiatry; ATTEND Psychiatry & Neurology Psychiatry
DX: F29 Unspecified psychosis not due to a substance or known physiological condition (principal); F02.B2 Dementia in other diseases classified elsewhere, moderate, with psychotic disturbance; E03.9 Hypothyroidism, unspecified; B00.9 Herpesviral infection, unspecified; M54.9 Dorsalgia, unspecified; F20.9 Schizophrenia, unspecified; G89.29 Other chronic pain; J30.2 Other seasonal allergic rhinitis; K59.00 Constipation, unspecified; N95.9 Unspecified menopausal and perimenopausal disorder; Z98.1 Arthrodesis status; Z90.710 Acquired absence of both cervix and uterus; Z85.42 Personal history of malignant neoplasm of other parts of uterus; Z81.8 Family history of other mental and behavioral disorders; Z90.722 Acquired absence of ovaries, bilateral; Z88.6 Allergy status to analgesic agent; Z79.899 Other long term (current) drug therapy
CPT/HCPCS: 36415; 70551; 80061; 83036; 84443; 87081

== ENCOUNTER 2023-05-29 14:28 | Emergency (ER) | payer MEDICARE, MEDICAID ==
[~2023-05-29] VITALS: Ht 152.4 cm; Wt 56.7 kg
[~2023-05-29 14:28] MED LIST changes: +ACYC-128 PO; -ACYC5CRE2 TOP; +CETI10TA14 PO; +ESTR1TAB28 PO; +FLUT16SP26 BOTHNARES; +LEVO25TA7 PO; +OLAN15TA35 PO
[2023-05-29 15:20] LABS: BASOPHILS % (AUTO) 0.3 % (0-1); EOSINOPHILS % (AUTO) 0.5 % (0-6); HEMATOCRIT 41.8 % (35.0-45.0); HEMOGLOBIN 13.5 g/dl (12.0-16.0); LYMPHOCYTES # (AUTO) 1.6 X10'3 (1.1-4.8); LYMPHOCYTES % (AUTO) 28.3 % (21-51); MEAN CORPUSCULAR HEMOGLOBIN 31.3 PG (27.0-31.0); MEAN CORPUSCULAR HGB CONC 32.3 g/dL (33.0-36.5); MEAN CORPUSCULAR VOLUME 96.9 FL (78-98); MEAN PLATELET VOLUME 8.2 FL (7.4-10.4); MONOCYTES # (AUTO) 0.3 X10'3 (0-0.9); MONOCYTES % (AUTO) 4.4 % (2-12); NEUTROPHILS # (AUTO) 3.8 X10'3 (1.8-7.7); NEUTROPHILS % (AUTO) 66.5 % (42-75); PLATELET COUNT 229 X10'3 (140-440); RED BLOOD COUNT 4.31 X10'6 (4.20-5.60); RED CELL DISTRIBUTION WIDTH 13.1 % (11.5-14.5); WHITE BLOOD COUNT 5.7 X10'3 (4.5-11.0)
[2023-05-29 15:33] LABS: ALANINE AMINOTRANSFERASE 15 U/L (12-78); ALBUMIN 4.7 G/DL (3.4-5.0); ALBUMIN/GLOBULIN RATIO 1.4 (1.1-1.5); ALKALINE PHOSPHATASE 62 IU/L (46-116); ANION GAP 17 (8-16); ASPARTATE AMINO TRANSFERASE 24 U/L (10-37); BILIRUBIN,TOTAL 1.2 MG/DL (0.1-1.0); BLOOD UREA NITROGEN 13 MG/DL (7-18); BUN/CREATININE RATIO 15.5 (10.0-20.0); CALCIUM 9.4 MG/DL (8.5-10.1); CHLORIDE 100 MMOL/L (99-107); CREATININE 0.84 MG/DL (0.40-0.90); GLUCOSE 67 MG/DL (70-104); POTASSIUM 3.8 MMOL/L (3.5-5.1); SODIUM 135 MMOL/L (135-145); TOTAL CARBON DIOXIDE 17.8 MMOL/L (24-32); TOTAL PROTEIN 8.1 G/DL (6.4-8.2); eCRCL 49 ML/MIN; eGFR 68 ML/MIN
[2023-05-29 15:40] LABS: BILIRUBIN,URINE SMALL (Neg); CLARITY,URINE SLIGHTLY CLOUDY (Clear); COLOR,URINE YELLOW (Yellow); GLUCOSE, URINE NEGATIVE (Neg); KETONES,URINE >=80 mg/dl (Neg); LEUKOCYTE ESTERASE ,URINE NEGATIVE (Neg); NITRITES, URINE NEGATIVE (Neg); OCCULT BLOOD,URINE TRACE-INTACT (Neg); PROTEIN,URINE NEGATIVE (Neg); UROBILINOGEN,URINE 0.2 E.U/dL (0.2-1.0)
[2023-05-29 15:42] LABS: UA COLLECTION TYPE CLN CATCH MIDSTREAM
[2023-05-29 15:54] LABS: MUCUS STRANDS FEW /LPF (Neg); SQUAMOUS EPITHELIAL CELL,UR MANY /LPF (FEW)
[2023-05-29 15:55] LABS: BACTERIA,URINE 2+ /HPF (Neg); TRANSITIONAL EPI CELLS,URINE FEW /HPF; WBC,URINE 0-4 /HPF (0-4)
[2023-05-30] MEDS ORDERED: VALA100031 PO (07:17)
[2023-05-30] MEDS ORDERED: ESTR1.25 PO (07:17)
[2023-05-30] MEDS ORDERED: LEVO25TA2 PO (08:08)
[2023-05-30] MEDS ORDERED: FLUT16SP2 BOTHNARES (08:08)
[2023-05-30] MEDS ORDERED: EST1T PO (08:08)
[2023-05-30] MEDS ORDERED: CETI10TA14 PO (08:08)
[2023-05-30] MEDS ORDERED: OLAN15TA3 PO (08:08)
[2023-05-30] MEDS ORDERED: olanzapine 10mg tablet PO ONE (08:28)
[2023-05-30 14:50] LABS: URINE AMPHETAMINE SCREEN NEGATIVE (Neg); URINE BARBITUATE SCREEN NEGATIVE (Neg); URINE BENZODIAZEPINES SCREEN NEGATIVE (Neg); URINE CANNABINOID SCREEN NEGATIVE (Neg); URINE COCAINE SCREEN NEGATIVE (Neg); URINE METHADONE SCREEN NEGATIVE (Neg); URINE OPIATE SCREEN NEGATIVE (Neg); URINE PHENCYCLIDINE SCREEN NEGATIVE (Neg)
[2023-05-30] MEDS ORDERED: LORazepam 2 mg/ml vial IM ONE (15:40)
[2023-05-30] MEDS ORDERED: LORazepam 1 MG tablet PO ONE (15:45)
[2023-05-30] MEDS: fluticasone nasal spray 16GM bottle NS SCH (20:00)
[2023-05-31] MEDS: fluticasone nasal spray 16GM bottle NS SCH ×2 (08:00→20:00)
[2023-05-31] MEDS: estradiol 1mg tablet PO SCH (08:17)
[2023-05-31] MEDS: cetirizine 10mg tablet PO SCH (08:17)
[2023-05-31] MEDS: levoTHYROXINE 25mcg tablet PO SCH (08:17)
[2023-05-31] MEDS ORDERED: LORazepam 1 MG tablet PO ONE (11:25)
[2023-05-31] MEDS: OLANZAPINE 5 MG TABLET PO SCH (20:25)
[2023-05-31] MEDS ORDERED: haloperidol 1mg tablet PO ONE (21:45)
[2023-06-01] MEDS: cetirizine 10mg tablet PO SCH (07:50)
[2023-06-01] MEDS: levoTHYROXINE 25mcg tablet PO SCH (07:50)
[2023-06-01] MEDS: estradiol 1mg tablet PO SCH (07:58)
[2023-06-01] MEDS: fluticasone nasal spray 16GM bottle NS SCH ×2 (07:58→20:23)
[2023-06-01] MEDS: OLANZAPINE 5 MG TABLET PO SCH (20:24)
[2023-06-02] MEDS: levoTHYROXINE 25mcg tablet PO SCH (07:49)
[2023-06-02] MEDS: cetirizine 10mg tablet PO SCH (07:49)
[2023-06-02] MEDS: estradiol 1mg tablet PO SCH (08:06)
[2023-06-02] MEDS: fluticasone nasal spray 16GM bottle NS SCH ×2 (08:06→20:00)
[2023-06-02] MEDS ORDERED: hydrOXYzine 25 MG tablet PO ONE (10:00)
[2023-06-02] MEDS ORDERED: LORazepam 1 MG tablet PO ONE (10:00)
[2023-06-02] MEDS: OLANZAPINE 5 MG TABLET PO SCH (20:12)
[2023-06-03] MEDS: estradiol 1mg tablet PO SCH (08:09)
[2023-06-03] MEDS: fluticasone nasal spray 16GM bottle NS SCH ×2 (08:09→20:07)
[2023-06-03] MEDS: levoTHYROXINE 25mcg tablet PO SCH (08:10)
[2023-06-03] MEDS: cetirizine 10mg tablet PO SCH (08:20)
[2023-06-03] MEDS: OLANZAPINE 5 MG TABLET PO SCH (20:07)
[2023-06-04] MEDS: fluticasone nasal spray 16GM bottle NS SCH ×2 (08:26→20:31)
[2023-06-04] MEDS: cetirizine 10mg tablet PO SCH (08:26)
[2023-06-04] MEDS: estradiol 1mg tablet PO SCH (08:26)
[2023-06-04] MEDS: levoTHYROXINE 25mcg tablet PO SCH (08:26)
[2023-06-04] MEDS ORDERED: LORazepam 1 MG tablet PO PRN (14:30)
[2023-06-04] MEDS ORDERED: LORazepam 1 MG tablet PO ONE (14:50)
[2023-06-04] MEDS: OLANZAPINE 5 MG TABLET PO SCH (20:31)
[2023-06-05] MEDS: cetirizine 10mg tablet PO SCH (07:36)
[2023-06-05] MEDS: fluticasone nasal spray 16GM bottle NS SCH ×2 (07:36→20:17)
[2023-06-05] MEDS: estradiol 1mg tablet PO SCH (07:36)
[2023-06-05] MEDS: levoTHYROXINE 25mcg tablet PO SCH (07:36)
[2023-06-05] MEDS ORDERED: acetaminophen 325mg tablet PO ONE (19:40)
[2023-06-05] MEDS: OLANZAPINE 5 MG TABLET PO SCH (20:16)
[2023-06-06] MEDS: fluticasone nasal spray 16GM bottle NS SCH ×2 (08:29→20:00)
[2023-06-06] MEDS: cetirizine 10mg tablet PO SCH (08:29)
[2023-06-06] MEDS: levoTHYROXINE 25mcg tablet PO SCH (08:29)
[2023-06-06] MEDS: estradiol 1mg tablet PO SCH (08:29)
[2023-06-06] MEDS: OLANZAPINE 5 MG TABLET PO SCH (21:39)
[2023-06-06] MEDS ORDERED: haloperidol 1mg tablet PO ONE (22:15)
[2023-06-07] MEDS: levoTHYROXINE 25mcg tablet PO SCH (08:25)
[2023-06-07] MEDS: estradiol 1mg tablet PO SCH (08:25)
[2023-06-07] MEDS: fluticasone nasal spray 16GM bottle NS SCH ×2 (08:25→20:27)
[2023-06-07] MEDS: cetirizine 10mg tablet PO SCH (08:25)
[2023-06-07] MEDS: OLANZAPINE 5 MG TABLET PO SCH (20:26)
[2023-06-08] MEDS: estradiol 1mg tablet PO SCH (08:42)
[2023-06-08] MEDS: cetirizine 10mg tablet PO SCH (08:42)
[2023-06-08] MEDS: levoTHYROXINE 25mcg tablet PO SCH (08:42)
[2023-06-08] MEDS: fluticasone nasal spray 16GM bottle NS SCH ×2 (08:43→20:14)
[2023-06-08] MEDS: OLANZAPINE 5 MG TABLET PO SCH (20:15)
[2023-06-09] MEDS ORDERED: LORazepam 1 MG tablet PO PRN (07:35)
[2023-06-09] MEDS: estradiol 1mg tablet PO SCH (08:22)
[2023-06-09] MEDS: cetirizine 10mg tablet PO SCH (08:22)
[2023-06-09] MEDS: levoTHYROXINE 25mcg tablet PO SCH (08:22)
[2023-06-09] MEDS: fluticasone nasal spray 16GM bottle NS SCH ×2 (08:25→20:02)
[2023-06-09] MEDS: OLANZAPINE 5 MG TABLET PO SCH (20:02)
[2023-06-09] MEDS ORDERED: QUEtiapine 25mg tablet PO ONE (21:25)
[2023-06-10] MEDS: levoTHYROXINE 25mcg tablet PO SCH (07:44)
[2023-06-10] MEDS: estradiol 1mg tablet PO SCH (07:44)
[2023-06-10] MEDS: cetirizine 10mg tablet PO SCH (07:44)
[2023-06-10] MEDS: fluticasone nasal spray 16GM bottle NS SCH ×2 (07:45→20:10)
[2023-06-10] MEDS: QUEtiapine 25mg tablet PO SCH ×3 (08:15→20:10)
[2023-06-10] MEDS ORDERED: QUEtiapine 25mg tablet PO SCH (09:00)
[2023-06-10] MEDS ORDERED: quetiapine 100mg tablet PO ONE (18:05)
[2023-06-11] MEDS: estradiol 1mg tablet PO SCH (08:00)
[2023-06-11] MEDS: fluticasone nasal spray 16GM bottle NS SCH ×2 (08:00→19:56)
[2023-06-11] MEDS: cetirizine 10mg tablet PO SCH (09:11)
[2023-06-11] MEDS: levoTHYROXINE 25mcg tablet PO SCH (09:11)
[2023-06-11] MEDS: QUEtiapine 25mg tablet PO SCH ×3 (09:11→19:56)
[2023-06-12] MEDS: levoTHYROXINE 25mcg tablet PO SCH (07:22)
[2023-06-12] MEDS: cetirizine 10mg tablet PO SCH (07:23)
[2023-06-12] MEDS: fluticasone nasal spray 16GM bottle NS SCH ×2 (07:24→19:20)
[2023-06-12] MEDS: estradiol 1mg tablet PO SCH (07:32)
[2023-06-12] MEDS: QUEtiapine 25mg tablet PO SCH ×3 (08:45→19:13)
[2023-06-12] MEDS ORDERED: LORazepam 1 MG tablet PO ONE (19:05)
[2023-06-13] MEDS: estradiol 1mg tablet PO SCH (07:44)
[2023-06-13] MEDS: cetirizine 10mg tablet PO SCH (07:44)
[2023-06-13] MEDS: levoTHYROXINE 25mcg tablet PO SCH (07:44)
[2023-06-13] MEDS: fluticasone nasal spray 16GM bottle NS SCH (07:47)
[2023-06-13 07:59] VITALS: BP 123/65; PULSE 76; O2SAT 98
[2023-06-13] MEDS: QUEtiapine 25mg tablet PO SCH (08:01)
[2023-06-13 08:20] VITALS: RESP 14
[2023-06-13 10:56] VITALS: TEMP 98.3
== END 2023-06-13 10:53 | disposition home or self-care (01) ==
LOC: ER 14:29
DX: F32.A Depression, unspecified (principal); Z20.822 Contact with and (suspected) exposure to COVID-19; F03.90 Unspecified dementia, unspecified severity, without behavioral disturbance, psychotic disturbance, mood disturbance, and anxiety; Z88.8 Allergy status to other drugs, medicaments and biological substances; Z88.6 Allergy status to analgesic agent; Z79.899 Other long term (current) drug therapy
CPT/HCPCS: 36415; 71045; 80053; 80305; 81001; 82948; 84443; 85025; 86592; 87811; 99284; 99285

== ENCOUNTER 2024-06-01 00:44 | Inpatient (IN) | payer MEDICARE, MEDICAID ==
[~2024-06-01] VITALS: Ht 157.5 cm; Wt 70.0 kg
[~2024-06-01 00:44] MED LIST changes: -ACYC-128 PO; +EST1T PO; -ESTR1TAB28 PO; +FLUT16SP2 BOTHNARES; -FLUT16SP26 BOTHNARES; +LEVO25TA2 PO; -LEVO25TA7 PO; +OLAN15TA3 PO; -OLAN15TA35 PO
[2024-06-01] MEDS: normal saline 1000ml 1,000 ML IV ONE ×2 (01:25→02:25)
[2024-06-01 02:00] LABS: BASOPHILS # (AUTO) 0.1 X10'3 (0-0.2); BASOPHILS % (AUTO) 0.6 % (0-1); EOSINOPHILS # (AUTO) 0.2 X10'3 (0-0.9); EOSINOPHILS % (AUTO) 1.9 % (0-6); HEMATOCRIT 41.4 % (35.0-45.0); HEMOGLOBIN 13.8 g/dl (12.0-16.0); LYMPHOCYTES # (AUTO) 3.5 X10'3 (1.1-4.8); LYMPHOCYTES % (AUTO) 38.5 % (21-51); MEAN CORPUSCULAR HEMOGLOBIN 29.9 PG (27.0-31.0); MEAN CORPUSCULAR HGB CONC 33.3 g/dL (33.0-36.5); MEAN PLATELET VOLUME 10.4 FL (7.4-10.4); MONOCYTES # (AUTO) 0.6 X10'3 (0-0.9); MONOCYTES % (AUTO) 6.5 % (2-12); NEUTROPHILS # (AUTO) 4.8 X10'3 (1.8-7.7); NEUTROPHILS % (AUTO) 52.5 % (42-75); PLATELET COUNT 306 X10'3 (140-440); RED CELL DISTRIBUTION WIDTH 14.5 % (11.5-14.5); WHITE BLOOD COUNT 9.1 X10'3 (4.5-11.0)
[2024-06-01 02:31] LABS: ALANINE AMINOTRANSFERASE 145 U/L (12-78); ALBUMIN 3.6 G/DL (3.4-5.0); ALBUMIN/GLOBULIN RATIO 0.8 (1.1-1.5); ALKALINE PHOSPHATASE 91 IU/L (46-116); ANION GAP 14 (8-16); ASPARTATE AMINO TRANSFERASE 56 U/L (10-37); BILIRUBIN,TOTAL 1.1 MG/DL (0.1-1.0); BLOOD UREA NITROGEN 19 MG/DL (7-18); BUN/CREATININE RATIO 19.2 (10.0-20.0); CALCIUM 9.4 MG/DL (8.5-10.1); CHLORIDE 106 MMOL/L (99-107); CREATININE 0.99 MG/DL (0.40-0.90); GLUCOSE 112 MG/DL (70-104); SODIUM 140 MMOL/L (135-145); TOTAL CARBON DIOXIDE 19.8 MMOL/L (24-32); TOTAL PROTEIN 7.9 G/DL (6.4-8.2); eCRCL 45 ML/MIN; eGFR 56 ML/MIN
[2024-06-01 02:33] LABS: BILIRUBIN,URINE MODERATE (Neg); CLARITY,URINE CLEAR (Clear); COLOR,URINE YELLOW (Yellow); GLUCOSE, URINE NEGATIVE (Neg); KETONES,URINE >=80 mg/dl (Neg); LEUKOCYTE ESTERASE ,URINE NEGATIVE (Neg); NITRITES, URINE NEGATIVE (Neg); OCCULT BLOOD,URINE NEGATIVE (Neg); PROTEIN,URINE TRACE mg/dl (Neg)
[2024-06-01 02:36] LABS: PRO BRAIN NATRIURETIC PEPTIDE 58 PG/ML (0-125)
[2024-06-01 02:38] LABS: UA COLLECTION TYPE CLN CATCH MIDSTREAM
[2024-06-01 02:39] LABS: BACTERIA,URINE FEW /HPF (Neg); MUCUS STRANDS NONE SEEN /LPF (Neg); RBC,URINE 0-2 /HPF (0-2); SQUAMOUS EPITHELIAL CELL,UR FEW /LPF (FEW); WBC,URINE NONE SEEN /HPF (0-4)
[2024-06-01] MEDS ORDERED: acetaminophen 325mg tablet PO PRN ×2 (03:55)
[2024-06-01] MEDS ORDERED: mag hydrox/Alum hydrox/simeth 30ml oral suspension PO PRN (03:55)
[2024-06-01] MEDS ORDERED: ondansetron/PF 4mg/2ml inj IV PRN (03:55)
[2024-06-01] MEDS ORDERED: morphine 2 MG/ML inj. syringe IV PRN (03:55)
[2024-06-01] MEDS ORDERED: potassium Cl 40MEQ/1/2NS 520ml 520 ML IV PRN (03:55)
[2024-06-01] MEDS ORDERED: HYDROcodone/acetaminophen 5mg/325mg tablet PO PRN (03:55)
[2024-06-01] MEDS ORDERED: magnesium sulf-water 2g/50mL 50 ML IV PRN (03:55)
[2024-06-01] MEDS ORDERED: potassium Cl 20 mEq SR tablet PO PRN ×2 (03:55)
[2024-06-01] MEDS ORDERED: magnesium hydroxide 30ml (MOM) UD suspension PO PRN (03:55)
[2024-06-01] MEDS ORDERED: magnesium Cl slow-release 64mg tablet PO PRN (03:55)
[2024-06-01] MEDS ORDERED: magnesium sulf-water 4G/100mL 100 ML IV PRN (03:55)
[2024-06-01 04:47] LABS: INR 1.1 INR
[2024-06-01] MEDS: normal saline 1000ml 1,000 ML IV SCH (04:50)
[2024-06-01 04:59] LABS: POTASSIUM 4.1 MMOL/L (3.5-5.1); THYROID STIMULATING HORMONE 2.11 ulU/ml (0.34-4.50)
[2024-06-01 05:01] LABS: URINE AMPHETAMINE SCREEN NEGATIVE (Neg); URINE BARBITUATE SCREEN NEGATIVE (Neg); URINE BENZODIAZEPINES SCREEN NEGATIVE (Neg); URINE CANNABINOID SCREEN NEGATIVE (Neg); URINE COCAINE SCREEN NEGATIVE (Neg); URINE METHADONE SCREEN NEGATIVE (Neg); URINE OPIATE SCREEN NEGATIVE (Neg); URINE PHENCYCLIDINE SCREEN NEGATIVE (Neg)
[2024-06-01] MEDS: K and/or MAG REPLACEMENT MC SCH (06:16)
[2024-06-01] MEDS: docusate sod 100mg capsule PO SCH (07:19)
[2024-06-01] MEDS: heparin, porcine 5000 units/ml vial SQ SCH (07:50)
[2024-06-01] MEDS: thiamine 100mg/ml 2ml inj. IV SCH (07:50)
[2024-06-01 17:00] VITALS: BP 124/63; PULSE 84; RESP 16; TEMP 98; O2SAT 98
[2024-06-01 20:00] VITALS: RESP 18
[2024-06-01 22:00] VITALS: BP 138/79; PULSE 80; RESP 18; TEMP 98.1; O2SAT 96
[2024-06-02 06:00] VITALS: BP 115/78; PULSE 64; RESP 15; TEMP 97.7; O2SAT 99
[2024-06-02 07:00] LABS: BASOPHILS % (AUTO) 0.5 % (0-1); EOSINOPHILS # (AUTO) 0.1 X10'3 (0-0.9); EOSINOPHILS % (AUTO) 2.6 % (0-6); HEMATOCRIT 35.2 % (35.0-45.0); HEMOGLOBIN 11.7 g/dl (12.0-16.0); LYMPHOCYTES # (AUTO) 2.2 X10'3 (1.1-4.8); LYMPHOCYTES % (AUTO) 38.4 % (21-51); MEAN CORPUSCULAR HEMOGLOBIN 30.1 PG (27.0-31.0); MEAN CORPUSCULAR HGB CONC 33.3 g/dL (33.0-36.5); MEAN CORPUSCULAR VOLUME 90.3 FL (78-98); MEAN PLATELET VOLUME 9.7 FL (7.4-10.4); MONOCYTES # (AUTO) 0.3 X10'3 (0-0.9); MONOCYTES % (AUTO) 5.9 % (2-12); NEUTROPHILS # (AUTO) 2.9 X10'3 (1.8-7.7); NEUTROPHILS % (AUTO) 52.6 % (42-75); PLATELET COUNT 185 X10'3 (140-440); RED BLOOD COUNT 3.89 X10'6 (4.20-5.60); WHITE BLOOD COUNT 5.6 X10'3 (4.5-11.0)
[2024-06-02 07:15] LABS: ALANINE AMINOTRANSFERASE 101 U/L (12-78); ALBUMIN 2.9 G/DL (3.4-5.0); ALBUMIN/GLOBULIN RATIO 0.9 (1.1-1.5); ALKALINE PHOSPHATASE 71 IU/L (46-116); ANION GAP 10 (8-16); ASPARTATE AMINO TRANSFERASE 37 U/L (10-37); BILIRUBIN,TOTAL 0.7 MG/DL (0.1-1.0); BLOOD UREA NITROGEN 8 MG/DL (7-18); BUN/CREATININE RATIO 13.1 (10.0-20.0); CALCIUM 8.4 MG/DL (8.5-10.1); CHLORIDE 110 MMOL/L (99-107); CREATININE 0.61 MG/DL (0.40-0.90); GLUCOSE 61 MG/DL (70-104); MAGNESIUM 1.8 MG/DL (1.5-2.4); PHOSPHORUS 2.5 MG/DL (2.3-4.5); POTASSIUM 3.6 MMOL/L (3.5-5.1); SODIUM 143 MMOL/L (135-145); TOTAL CARBON DIOXIDE 22.7 MMOL/L (24-32); TOTAL PROTEIN 6.2 G/DL (6.4-8.2); eCRCL 74 ML/MIN; eGFR > 90 ML/MIN
[2024-06-02 08:00] VITALS: RESP 16; O2SAT 94
[2024-06-02] MEDS: PERFLUTREN PROTEIN-A MICROSPHR (Optison) 0.22 MG/ML 3ML VIAL IV ONE (08:00)
[2024-06-02 10:00] VITALS: BP 114/73; PULSE 69; RESP 16; TEMP 97.1; O2SAT 94
[2024-06-02] MEDS: LORazepam 2 mg/ml vial IV SCH (10:30)
[2024-06-02 18:00] VITALS: BP 116/68; PULSE 66; RESP 18; TEMP 97.9; O2SAT 97
[2024-06-02 20:00] VITALS: RESP 18; O2SAT 96
[2024-06-02 22:00] VITALS: BP 110/56; PULSE 71; RESP 16; TEMP 96.7; O2SAT 96
[2024-06-03 06:00] VITALS: BP 123/68; PULSE 60; RESP 14; TEMP 98.9; O2SAT 98
[2024-06-03 06:51] LABS: ALANINE AMINOTRANSFERASE 84 U/L (12-78); ALBUMIN 2.8 G/DL (3.4-5.0); ALBUMIN/GLOBULIN RATIO 0.8 (1.1-1.5); ALKALINE PHOSPHATASE 71 IU/L (46-116); ANION GAP 10 (8-16); ASPARTATE AMINO TRANSFERASE 34 U/L (10-37); BILIRUBIN,TOTAL 0.7 MG/DL (0.1-1.0); BLOOD UREA NITROGEN 4 MG/DL (7-18); BUN/CREATININE RATIO 6.5 (10.0-20.0); CALCIUM 8.2 MG/DL (8.5-10.1); CHLORIDE 109 MMOL/L (99-107); CREATININE 0.62 MG/DL (0.40-0.90); GLUCOSE 66 MG/DL (70-104); MAGNESIUM 1.7 MG/DL (1.5-2.4); PHOSPHORUS 2.8 MG/DL (2.3-4.5); SODIUM 139 MMOL/L (135-145); TOTAL PROTEIN 6.2 G/DL (6.4-8.2); eCRCL 73 ML/MIN; eGFR > 90 ML/MIN
[2024-06-03 06:52] LABS: POTASSIUM 4.2 MMOL/L (3.5-5.1)
[2024-06-03 06:56] LABS: BASOPHILS % (AUTO) 0.7 % (0-1); HEMATOCRIT 36.8 % (35.0-45.0); HEMOGLOBIN 12.3 g/dl (12.0-16.0); LYMPHOCYTES # (AUTO) 1.7 X10'3 (1.1-4.8); LYMPHOCYTES % (AUTO) 35.3 % (21-51); MEAN CORPUSCULAR HEMOGLOBIN 30.3 PG (27.0-31.0); MEAN CORPUSCULAR HGB CONC 33.5 g/dL (33.0-36.5); MEAN CORPUSCULAR VOLUME 90.2 FL (78-98); MEAN PLATELET VOLUME 10.2 FL (7.4-10.4); MONOCYTES # (AUTO) 0.2 X10'3 (0-0.9); MONOCYTES % (AUTO) 4.5 % (2-12); NEUTROPHILS # (AUTO) 2.9 X10'3 (1.8-7.7); NEUTROPHILS % (AUTO) 58.5 % (42-75); PLATELET COUNT 151 X10'3 (140-440); RED BLOOD COUNT 4.08 X10'6 (4.20-5.60); RED CELL DISTRIBUTION WIDTH 13.9 % (11.5-14.5); WHITE BLOOD COUNT 4.9 X10'3 (4.5-11.0)
[2024-06-03 08:00] VITALS: RESP 14; O2SAT 98
[2024-06-03] MEDS: dextrose 5%-1/2 normal saline 1,000 ML IV SCH (09:38)
[2024-06-03 10:00] VITALS: BP 137/82; PULSE 87; RESP 16; TEMP 97; O2SAT 99
[2024-06-03] MEDS: LORazepam 2 mg/ml vial IV SCH (14:57)
[2024-06-03 18:00] VITALS: BP 112/70; PULSE 82; RESP 20; TEMP 98.2; O2SAT 99
[2024-06-03 20:00] VITALS: RESP 20; O2SAT 99
[2024-06-03 22:00] VITALS: BP 114/67; PULSE 83; RESP 15; TEMP 98.6; O2SAT 97
[2024-06-04 06:00] VITALS: BP 108/66; PULSE 83; RESP 14; TEMP 97.5; O2SAT 97
[2024-06-04 06:00] LABS: BASOPHILS % (AUTO) 0.4 % (0-1); EOSINOPHILS # (AUTO) 0.1 X10'3 (0-0.9); EOSINOPHILS % (AUTO) 1.5 % (0-6); HEMATOCRIT 33.9 % (35.0-45.0); HEMOGLOBIN 11.6 g/dl (12.0-16.0); LYMPHOCYTES # (AUTO) 1.8 X10'3 (1.1-4.8); LYMPHOCYTES % (AUTO) 18.9 % (21-51); MEAN CORPUSCULAR HEMOGLOBIN 30.2 PG (27.0-31.0); MEAN CORPUSCULAR HGB CONC 34.2 g/dL (33.0-36.5); MEAN CORPUSCULAR VOLUME 88.2 FL (78-98); MEAN PLATELET VOLUME 9.6 FL (7.4-10.4); MONOCYTES # (AUTO) 0.6 X10'3 (0-0.9); MONOCYTES % (AUTO) 6.7 % (2-12); NEUTROPHILS % (AUTO) 72.5 % (42-75); PLATELET COUNT 186 X10'3 (140-440); RED BLOOD COUNT 3.85 X10'6 (4.20-5.60); RED CELL DISTRIBUTION WIDTH 13.6 % (11.5-14.5); WHITE BLOOD COUNT 9.7 X10'3 (4.5-11.0)
[2024-06-04 06:42] LABS: ALANINE AMINOTRANSFERASE 61 U/L (12-78); ALBUMIN 2.4 G/DL (3.4-5.0); ALBUMIN/GLOBULIN RATIO 0.7 (1.1-1.5); ALKALINE PHOSPHATASE 65 IU/L (46-116); ANION GAP 10 (8-16); ASPARTATE AMINO TRANSFERASE 39 U/L (10-37); BLOOD UREA NITROGEN 1 MG/DL (7-18); BUN/CREATININE RATIO 1.7 (10.0-20.0); CALCIUM 8.1 MG/DL (8.5-10.1); CHLORIDE 104 MMOL/L (99-107); CREATININE 0.59 MG/DL (0.40-0.90); GLUCOSE 136 MG/DL (70-104); MAGNESIUM 1.5 MG/DL (1.5-2.4); PHOSPHORUS 1.8 MG/DL (2.3-4.5); SODIUM 137 MMOL/L (135-145); TOTAL CARBON DIOXIDE 23.3 MMOL/L (24-32); TOTAL PROTEIN 5.8 G/DL (6.4-8.2); eCRCL 76 ML/MIN; eGFR > 90 ML/MIN
[2024-06-04 06:54] LABS: POTASSIUM 2.9 MMOL/L (3.5-5.1)
[2024-06-04 08:00] VITALS: RESP 16; O2SAT 99
[2024-06-04] MEDS ORDERED: magnesium sulf-water 4G/100mL 100 ML IV PRN (09:30)
[2024-06-04] MEDS ORDERED: magnesium Cl slow-release 64mg tablet PO PRN (09:30)
[2024-06-04] MEDS ORDERED: potassium Cl 20 mEq SR tablet PO PRN (09:30)
[2024-06-04] MEDS ORDERED: magnesium sulf-water 2g/50mL 50 ML IV PRN (09:30)
[2024-06-04 10:00] VITALS: BP 128/70; PULSE 72; RESP 15; TEMP 98.6; O2SAT 97
[2024-06-04] MEDS: potassium Cl 40MEQ/1/2NS 520ml 520 ML IV PRN (10:54)
[2024-06-04 18:00] VITALS: BP 116/66; PULSE 78; RESP 15; TEMP 98.1; O2SAT 98
[2024-06-04 22:00] VITALS: BP 123/70; PULSE 64; RESP 16; TEMP 97.4; O2SAT 90
[2024-06-05] MEDS: LidoCAINE 2% Topical Jelly 11mL syringe (UROJET) TOP ONE (00:46)
[2024-06-05 06:00] VITALS: BP 125/70; PULSE 80; RESP 16; TEMP 97; O2SAT 99
[2024-06-05 08:15] LABS: BASOPHILS % (AUTO) 0.4 % (0-1); EOSINOPHILS # (AUTO) 0.1 X10'3 (0-0.9); EOSINOPHILS % (AUTO) 2.8 % (0-6); HEMATOCRIT 35.3 % (35.0-45.0); HEMOGLOBIN 12.2 g/dl (12.0-16.0); LYMPHOCYTES # (AUTO) 1.7 X10'3 (1.1-4.8); LYMPHOCYTES % (AUTO) 30.5 % (21-51); MEAN CORPUSCULAR HEMOGLOBIN 30.4 PG (27.0-31.0); MEAN CORPUSCULAR HGB CONC 34.7 g/dL (33.0-36.5); MEAN CORPUSCULAR VOLUME 87.7 FL (78-98); MEAN PLATELET VOLUME 9.3 FL (7.4-10.4); MONOCYTES # (AUTO) 0.4 X10'3 (0-0.9); MONOCYTES % (AUTO) 6.8 % (2-12); NEUTROPHILS # (AUTO) 3.2 X10'3 (1.8-7.7); NEUTROPHILS % (AUTO) 59.5 % (42-75); PLATELET COUNT 189 X10'3 (140-440); RED BLOOD COUNT 4.02 X10'6 (4.20-5.60); RED CELL DISTRIBUTION WIDTH 13.5 % (11.5-14.5); WHITE BLOOD COUNT 5.4 X10'3 (4.5-11.0)
[2024-06-05 08:22] LABS: ALANINE AMINOTRANSFERASE 56 U/L (12-78); ALBUMIN 2.6 G/DL (3.4-5.0); ALBUMIN/GLOBULIN RATIO 0.7 (1.1-1.5); ALKALINE PHOSPHATASE 71 IU/L (46-116); ANION GAP 5 (8-16); ASPARTATE AMINO TRANSFERASE 33 U/L (10-37); BILIRUBIN,TOTAL 0.8 MG/DL (0.1-1.0); BLOOD UREA NITROGEN 1 MG/DL (7-18); BUN/CREATININE RATIO 2.2 (10.0-20.0); CALCIUM 8.7 MG/DL (8.5-10.1); CHLORIDE 108 MMOL/L (99-107); CREATININE 0.46 MG/DL (0.40-0.90); GLUCOSE 85 MG/DL (70-104); PHOSPHORUS 2.5 MG/DL (2.3-4.5); POTASSIUM 3.9 MMOL/L (3.5-5.1); SODIUM 139 MMOL/L (135-145); TOTAL CARBON DIOXIDE 25.9 MMOL/L (24-32); TOTAL PROTEIN 6.1 G/DL (6.4-8.2); eCRCL 98 ML/MIN; eGFR > 90 ML/MIN
[2024-06-05 08:49] LABS: MAGNESIUM 1.5 MG/DL (1.5-2.4)
[2024-06-05 10:00] VITALS: BP 137/71; PULSE 76; RESP 16; TEMP 97.8; O2SAT 99
[2024-06-05] MEDS ORDERED: LORazepam 1 MG tablet PO PRN (14:00)
[2024-06-05 18:00] VITALS: BP 135/73; PULSE 84; RESP 16; TEMP 98.8; O2SAT 96
[2024-06-05 18:30] VITALS: O2SAT 97
[2024-06-05] MEDS: ARGININE/GLUTAMINE/CALCIUM BMB (JUVEN 19.3GM PKT) 1 EACH POWD.PACK PO SCH (20:00)
[2024-06-05 22:00] VITALS: BP 125/58; PULSE 65; RESP 16; TEMP 98.3; O2SAT 91
[2024-06-06] MEDS: LORazepam 1 MG tablet PO PRN (00:45)
[2024-06-06] MEDS: morphine 2 MG/ML inj. syringe IV PRN (03:15)
[2024-06-06 06:29] LABS: BASOPHILS % (AUTO) 0.3 % (0-1); EOSINOPHILS # (AUTO) 0.1 X10'3 (0-0.9); EOSINOPHILS % (AUTO) 1.5 % (0-6); HEMATOCRIT 34.8 % (35.0-45.0); HEMOGLOBIN 12.3 g/dl (12.0-16.0); LYMPHOCYTES # (AUTO) 1.9 X10'3 (1.1-4.8); MEAN CORPUSCULAR HEMOGLOBIN 30.9 PG (27.0-31.0); MEAN CORPUSCULAR HGB CONC 35.3 g/dL (33.0-36.5); MEAN CORPUSCULAR VOLUME 87.5 FL (78-98); MONOCYTES # (AUTO) 0.6 X10'3 (0-0.9); MONOCYTES % (AUTO) 6.7 % (2-12); NEUTROPHILS # (AUTO) 5.7 X10'3 (1.8-7.7); NEUTROPHILS % (AUTO) 68.5 % (42-75); PLATELET COUNT 208 X10'3 (140-440); RED BLOOD COUNT 3.98 X10'6 (4.20-5.60); WHITE BLOOD COUNT 8.3 X10'3 (4.5-11.0)
[2024-06-06 06:43] VITALS: BP 141/75; PULSE 80; RESP 17; TEMP 97.8; O2SAT 94
[2024-06-06 07:28] LABS: ALANINE AMINOTRANSFERASE 45 U/L (12-78); ALBUMIN 2.5 G/DL (3.4-5.0); ALBUMIN/GLOBULIN RATIO 0.7 (1.1-1.5); ALKALINE PHOSPHATASE 69 IU/L (46-116); ANION GAP 8 (8-16); ASPARTATE AMINO TRANSFERASE 26 U/L (10-37); BILIRUBIN,TOTAL 0.6 MG/DL (0.1-1.0); BLOOD UREA NITROGEN 0 MG/DL (7-18); CALCIUM 8.5 MG/DL (8.5-10.1); CHLORIDE 102 MMOL/L (99-107); CREATININE 0.53 MG/DL (0.40-0.90); GLUCOSE 143 MG/DL (70-104); MAGNESIUM 1.5 MG/DL (1.5-2.4); PHOSPHORUS 2.9 MG/DL (2.3-4.5); POTASSIUM 3.2 MMOL/L (3.5-5.1); SODIUM 138 MMOL/L (135-145); eCRCL 85 ML/MIN; eGFR > 90 ML/MIN
[2024-06-06 08:00] VITALS: RESP 16
[2024-06-06 10:52] VITALS: BP 127/82; PULSE 95; RESP 17; TEMP 98.6; O2SAT 95
[2024-06-06] MEDS: LORazepam 1 MG tablet NG SCH (11:09)
[2024-06-06 18:00] VITALS: BP 120/75; PULSE 88; RESP 14; TEMP 97.3; O2SAT 97
[2024-06-06 20:45] VITALS: RESP 14; O2SAT 95
[2024-06-06 22:00] VITALS: BP 111/75; PULSE 66; RESP 15; TEMP 100.4; O2SAT 98
[2024-06-07 06:00] VITALS: BP 142/72; PULSE 102; RESP 11; TEMP 98.3; O2SAT 91
[2024-06-07 08:00] VITALS: RESP 14; O2SAT 95
[2024-06-07 10:00] VITALS: BP 137/61; PULSE 91; RESP 14; TEMP 98.3; O2SAT 95
[2024-06-07] MEDS ORDERED: magnesium sulf-water 2g/50mL 50 ML IV PRN (11:05)
[2024-06-07] MEDS ORDERED: magnesium sulf-water 4G/100mL 100 ML IV PRN (11:05)
[2024-06-07] MEDS ORDERED: potassium Cl 40MEQ/1/2NS 520ml 520 ML IV PRN (11:05)
[2024-06-07 18:00] VITALS: BP 134/67; PULSE 95; RESP 21; TEMP 98; O2SAT 98
[2024-06-07 20:00] VITALS: RESP 21; O2SAT 98
[2024-06-07] MEDS: docusate sodium 100mg/10ml UD cup NG SCH (20:08)
[2024-06-07 22:00] VITALS: BP 129/70; PULSE 94; RESP 14; TEMP 97.9; O2SAT 98
[2024-06-08 06:00] VITALS: BP 118/60; PULSE 89; RESP 16; TEMP 97.8; O2SAT 97
[2024-06-08 10:00] VITALS: BP 99/46; PULSE 89; RESP 22; TEMP 97.9
[2024-06-08] MEDS: HYDROcodone/acetaminophen 10/325mg tab PO PRN (17:33)
[2024-06-08 18:00] VITALS: BP 133/59; PULSE 98; RESP 20; TEMP 98; O2SAT 99
[2024-06-08 22:00] VITALS: BP 105/63; PULSE 101; RESP 20; TEMP 98.9; O2SAT 99
[2024-06-09 06:00] VITALS: BP 134/63; PULSE 101; RESP 18; TEMP 98.2; O2SAT 91
[2024-06-09] MEDS: levoTHYROXINE 25mcg tablet PO SCH (08:32)
[2024-06-09 09:00] VITALS: RESP 18; O2SAT 93
[2024-06-09 10:00] VITALS: BP 125/72; PULSE 123; RESP 22; TEMP 98.3; O2SAT 92
[2024-06-09 16:56] VITALS: O2SAT 94
[2024-06-09 18:00] VITALS: BP 94/54; PULSE 115; RESP 26; TEMP 98.9; O2SAT 92
[2024-06-09 22:00] VITALS: BP 111/59; PULSE 117; RESP 15; TEMP 100.8; O2SAT 97
[2024-06-10 06:00] VITALS: BP 102/62; PULSE 108; RESP 20; TEMP 98.7; O2SAT 98
[2024-06-10 08:48] LABS: BASOPHILS # (AUTO) 0.1 X10'3 (0-0.2); BASOPHILS % (AUTO) 0.4 % (0-1); EOSINOPHILS # (AUTO) 0.1 X10'3 (0-0.9); EOSINOPHILS % (AUTO) 0.8 % (0-6); HEMATOCRIT 28.7 % (35.0-45.0); HEMOGLOBIN 9.9 g/dl (12.0-16.0); LYMPHOCYTES # (AUTO) 1.9 X10'3 (1.1-4.8); LYMPHOCYTES % (AUTO) 11.5 % (21-51); MEAN CORPUSCULAR HEMOGLOBIN 30.8 PG (27.0-31.0); MEAN CORPUSCULAR HGB CONC 34.6 g/dL (33.0-36.5); MEAN CORPUSCULAR VOLUME 89.2 FL (78-98); MEAN PLATELET VOLUME 8.4 FL (7.4-10.4); NEUTROPHILS # (AUTO) 12.8 X10'3 (1.8-7.7); NEUTROPHILS % (AUTO) 75.3 % (42-75); PLATELET COUNT 253 X10'3 (140-440); RED BLOOD COUNT 3.22 X10'6 (4.20-5.60); RED CELL DISTRIBUTION WIDTH 14.4 % (11.5-14.5)
[2024-06-10 10:00] VITALS: BP 90/41; PULSE 108; RESP 16; TEMP 98.9; O2SAT 96
[2024-06-10] MEDS: levoFLOXACIN-Levaquin 500mg/D5 100 ML IV SCH (13:37)
[2024-06-10] MEDS: metroNIDAZOLE-Flagyl 500mg/NS 100 ML IV SCH (17:10)
[2024-06-10 18:00] VITALS: BP 104/58; PULSE 100; RESP 18; TEMP 98; O2SAT 97
[2024-06-10 20:00] VITALS: O2SAT 97
[2024-06-10 22:00] VITALS: BP 108/64; PULSE 106; RESP 17; TEMP 97.2; O2SAT 97
[2024-06-11 09:22] LABS: BASOPHILS # (AUTO) 0.1 X10'3 (0-0.2); BASOPHILS % (AUTO) 0.5 % (0-1); EOSINOPHILS # (AUTO) 0.4 X10'3 (0-0.9); EOSINOPHILS % (AUTO) 2.7 % (0-6); HEMATOCRIT 28.8 % (35.0-45.0); HEMOGLOBIN 9.7 g/dl (12.0-16.0); LYMPHOCYTES # (AUTO) 1.7 X10'3 (1.1-4.8); MEAN CORPUSCULAR HGB CONC 33.7 g/dL (33.0-36.5); MEAN PLATELET VOLUME 8.1 FL (7.4-10.4); MONOCYTES # (AUTO) 1.8 X10'3 (0-0.9); MONOCYTES % (AUTO) 11.6 % (2-12); NEUTROPHILS # (AUTO) 11.6 X10'3 (1.8-7.7); NEUTROPHILS % (AUTO) 74.2 % (42-75); PLATELET COUNT 237 X10'3 (140-440); RED BLOOD COUNT 3.24 X10'6 (4.20-5.60); RED CELL DISTRIBUTION WIDTH 14.6 % (11.5-14.5); WHITE BLOOD COUNT 15.7 X10'3 (4.5-11.0)
[2024-06-11 10:00] VITALS: BP 133/72; PULSE 110; RESP 22; TEMP 97.6; O2SAT 99
[2024-06-11 10:39] LABS: ALANINE AMINOTRANSFERASE 30 U/L (12-78); ALBUMIN 1.9 G/DL (3.4-5.0); ALBUMIN/GLOBULIN RATIO 0.5 (1.1-1.5); ALKALINE PHOSPHATASE 86 IU/L (46-116); ANION GAP 8 (8-16); ASPARTATE AMINO TRANSFERASE 28 U/L (10-37); BILIRUBIN,TOTAL 0.4 MG/DL (0.1-1.0); BLOOD UREA NITROGEN 15 MG/DL (7-18); BUN/CREATININE RATIO 27.3 (10.0-20.0); CALCIUM 8.4 MG/DL (8.5-10.1); CHLORIDE 100 MMOL/L (99-107); CREATININE 0.55 MG/DL (0.40-0.90); GLUCOSE 119 MG/DL (70-104); POTASSIUM 3.9 MMOL/L (3.5-5.1); SODIUM 133 MMOL/L (135-145); TOTAL CARBON DIOXIDE 24.8 MMOL/L (24-32); TOTAL PROTEIN 5.9 G/DL (6.4-8.2); eCRCL 82 ML/MIN; eGFR > 90 ML/MIN
[2024-06-11] MEDS ORDERED: LORazepam 2 mg/ml vial IV ONE (12:50)
[2024-06-11 18:00] VITALS: BP 114/62; PULSE 99; RESP 26; TEMP 98.9; O2SAT 97
[2024-06-11 20:00] VITALS: O2SAT 97
[2024-06-11 22:00] VITALS: BP 124/73; PULSE 98; RESP 20; TEMP 98.4; O2SAT 97
[2024-06-12] VITALS (17 sets, daily range): BP systolic 92–127; BP diastolic 58–69; PULSE 89–117; RESP 15–28; TEMP 97.8–100.8; O2SAT 85–99
[2024-06-12] MEDS ORDERED: iohexol 300mg/ml 100ml inj. ONE (02:50)
[2024-06-12] MEDS: normal saline 250ml IV soln 250 ML IV ONE (05:04)
[2024-06-12] MEDS ORDERED: vancomycin inj 1,000 MG in normal saline 250ml IV soln 250 ML IV ONE (08:10)
[2024-06-12] MEDS ORDERED: vancomycin 1,750 MG in NS 350ml IV soln IV ONE (08:50)
[2024-06-12] MEDS: vancomycin 1,750 MG in NS 350ml IV soln IV ONE (11:03)
[2024-06-12 16:57] LABS: BILIRUBIN,URINE NEGATIVE (Neg); CLARITY,URINE CLEAR (Clear); GLUCOSE, URINE NEGATIVE (Neg); KETONES,URINE NEGATIVE (Neg); LEUKOCYTE ESTERASE ,URINE NEGATIVE (Neg); OCCULT BLOOD,URINE NEGATIVE (Neg); PROTEIN,URINE NEGATIVE (Neg)
[2024-06-12 17:06] LABS: COLOR,URINE DARK YELLOW (Yellow); UA COLLECTION TYPE FOLEY CATH
[2024-06-12 17:07] LABS: NITRITES, URINE NEGATIVE (Neg)
[2024-06-12] MEDS: hyoscyamine 0.125mg TAB.SUBL SL PRN (17:55)
[2024-06-12] MEDS: VANCOmycin 1250MG/NS 250ml Bag 250 ML IV SCH (23:34)
[2024-06-13 03:43] VITALS: PULSE 100; TEMP 98.3; O2SAT 97
[2024-06-13 06:00] VITALS: BP 133/75; PULSE 94; RESP 17; TEMP 98.5; O2SAT 98
[2024-06-13 09:12] LABS: BASOPHILS # (AUTO) 0.1 X10'3 (0-0.2); BASOPHILS % (AUTO) 0.5 % (0-1); EOSINOPHILS # (AUTO) 0.1 X10'3 (0-0.9); EOSINOPHILS % (AUTO) 1.3 % (0-6); HEMATOCRIT 28.4 % (35.0-45.0); HEMOGLOBIN 9.7 g/dl (12.0-16.0); LYMPHOCYTES # (AUTO) 1.2 X10'3 (1.1-4.8); LYMPHOCYTES % (AUTO) 10.6 % (21-51); MEAN CORPUSCULAR HEMOGLOBIN 30.1 PG (27.0-31.0); MEAN CORPUSCULAR HGB CONC 34.3 g/dL (33.0-36.5); MEAN CORPUSCULAR VOLUME 87.9 FL (78-98); MEAN PLATELET VOLUME 7.1 FL (7.4-10.4); MONOCYTES # (AUTO) 0.9 X10'3 (0-0.9); MONOCYTES % (AUTO) 7.7 % (2-12); NEUTROPHILS # (AUTO) 9.1 X10'3 (1.8-7.7); NEUTROPHILS % (AUTO) 79.9 % (42-75); PLATELET COUNT 320 X10'3 (140-440); RED BLOOD COUNT 3.23 X10'6 (4.20-5.60); WHITE BLOOD COUNT 11.4 X10'3 (4.5-11.0)
[2024-06-13 09:20] LABS: ALANINE AMINOTRANSFERASE 21 U/L (12-78); ALBUMIN 1.8 G/DL (3.4-5.0); ALBUMIN/GLOBULIN RATIO 0.5 (1.1-1.5); ALKALINE PHOSPHATASE 81 IU/L (46-116); ANION GAP 7 (8-16); ASPARTATE AMINO TRANSFERASE 12 U/L (10-37); BILIRUBIN,TOTAL 0.5 MG/DL (0.1-1.0); BLOOD UREA NITROGEN 5 MG/DL (7-18); CALCIUM 8.2 MG/DL (8.5-10.1); CHLORIDE 102 MMOL/L (99-107); GLUCOSE 146 MG/DL (70-104); POTASSIUM 3.2 MMOL/L (3.5-5.1); SODIUM 134 MMOL/L (135-145); TOTAL CARBON DIOXIDE 24.9 MMOL/L (24-32); TOTAL PROTEIN 5.6 G/DL (6.4-8.2); eCRCL 90 ML/MIN; eGFR > 90 ML/MIN
[2024-06-13 10:00] VITALS: BP 146/70; PULSE 92; RESP 15; TEMP 98; O2SAT 96
[2024-06-13] MEDS ORDERED: potassium Cl 40MEQ/1/2NS 520ml 520 ML IV PRN (11:20)
[2024-06-13] MEDS ORDERED: potassium Cl 20 mEq SR tablet PO PRN (11:20)
[2024-06-13] MEDS ORDERED: magnesium sulf-water 4G/100mL 100 ML IV PRN (11:20)
[2024-06-13] MEDS ORDERED: magnesium sulf-water 2g/50mL 50 ML IV PRN (11:20)
[2024-06-13] MEDS: POTASSIUM Cl 20eq-D5W 1000mL 1,000 ML IV SCH (14:55)
[2024-06-13] MEDS: potassium Cl 20 mEq SR tablet PO PRN (14:59)
[2024-06-13 18:00] VITALS: BP 125/72; PULSE 95; RESP 20; TEMP 97.8; O2SAT 97
[2024-06-13 20:00] VITALS: RESP 20; O2SAT 97
[2024-06-13] MEDS: K and/or MAG REPLACEMENT MC SCH (20:00)
[2024-06-13 22:00] VITALS: BP 146/72; PULSE 83; RESP 20; TEMP 98; O2SAT 99
[2024-06-13] MEDS: VANCOMYCIN LEVEL IV ONE (23:15)
[2024-06-14] VITALS (13 sets, daily range): BP systolic 102–173; BP diastolic 72–89; PULSE 103–123; RESP 18–31; TEMP 98–98.9; O2SAT 93–99
[2024-06-14 02:09] LABS: BASOPHILS # (AUTO) 0.1 X10'3 (0-0.2); BASOPHILS % (AUTO) 0.6 % (0-1); EOSINOPHILS # (AUTO) 0.2 X10'3 (0-0.9); EOSINOPHILS % (AUTO) 2.1 % (0-6); HEMATOCRIT 29.5 % (35.0-45.0); HEMOGLOBIN 10.2 g/dl (12.0-16.0); LYMPHOCYTES # (AUTO) 1.5 X10'3 (1.1-4.8); LYMPHOCYTES % (AUTO) 14.2 % (21-51); MEAN CORPUSCULAR HEMOGLOBIN 30.5 PG (27.0-31.0); MEAN CORPUSCULAR HGB CONC 34.6 g/dL (33.0-36.5); MEAN CORPUSCULAR VOLUME 88.1 FL (78-98); MONOCYTES % (AUTO) 8.9 % (2-12); NEUTROPHILS # (AUTO) 8.1 X10'3 (1.8-7.7); NEUTROPHILS % (AUTO) 74.2 % (42-75); PLATELET COUNT 364 X10'3 (140-440); RED BLOOD COUNT 3.35 X10'6 (4.20-5.60); RED CELL DISTRIBUTION WIDTH 14.2 % (11.5-14.5); WHITE BLOOD COUNT 10.9 X10'3 (4.5-11.0)
[2024-06-14 02:28] LABS: ALANINE AMINOTRANSFERASE 21 U/L (12-78); ALBUMIN 1.9 G/DL (3.4-5.0); ALBUMIN/GLOBULIN RATIO 0.5 (1.1-1.5); ALKALINE PHOSPHATASE 81 IU/L (46-116); ANION GAP 7 (8-16); ASPARTATE AMINO TRANSFERASE 16 U/L (10-37); BILIRUBIN,TOTAL 0.5 MG/DL (0.1-1.0); BLOOD UREA NITROGEN 3 MG/DL (7-18); BUN/CREATININE RATIO 6.5 (10.0-20.0); CALCIUM 8.2 MG/DL (8.5-10.1); CHLORIDE 104 MMOL/L (99-107); CREATININE 0.46 MG/DL (0.40-0.90); GLUCOSE 105 MG/DL (70-104); POTASSIUM 3.6 MMOL/L (3.5-5.1); PRO BRAIN NATRIURETIC PEPTIDE 216 PG/ML (0-125); SODIUM 136 MMOL/L (135-145); TOTAL CARBON DIOXIDE 24.9 MMOL/L (24-32); eCRCL 98 ML/MIN; eGFR > 90 ML/MIN
[2024-06-14] MEDS: VANCOMYCIN 1,500MG in NS 300ml IVPB IV SCH (11:48)
[2024-06-15] VITALS (7 sets, daily range): BP systolic 122–134; BP diastolic 56–78; PULSE 91–104; RESP 18–24; TEMP 97.4–98.6; O2SAT 94–99
[2024-06-15 06:20] LABS: BASOPHILS # (AUTO) 0.1 X10'3 (0-0.2); BASOPHILS % (AUTO) 0.7 % (0-1); EOSINOPHILS # (AUTO) 0.1 X10'3 (0-0.9); EOSINOPHILS % (AUTO) 0.6 % (0-6); HEMATOCRIT 30.4 % (35.0-45.0); HEMOGLOBIN 10.1 g/dl (12.0-16.0); LYMPHOCYTES # (AUTO) 2.1 X10'3 (1.1-4.8); LYMPHOCYTES % (AUTO) 14.8 % (21-51); MEAN CORPUSCULAR HEMOGLOBIN 29.5 PG (27.0-31.0); MEAN CORPUSCULAR HGB CONC 33.1 g/dL (33.0-36.5); MEAN CORPUSCULAR VOLUME 89.3 FL (78-98); MEAN PLATELET VOLUME 6.7 FL (7.4-10.4); MONOCYTES # (AUTO) 0.8 X10'3 (0-0.9); MONOCYTES % (AUTO) 5.6 % (2-12); NEUTROPHILS # (AUTO) 11.2 X10'3 (1.8-7.7); NEUTROPHILS % (AUTO) 78.3 % (42-75); PLATELET COUNT 373 X10'3 (140-440); RED BLOOD COUNT 3.41 X10'6 (4.20-5.60); RED CELL DISTRIBUTION WIDTH 14.3 % (11.5-14.5); WHITE BLOOD COUNT 14.3 X10'3 (4.5-11.0)
[2024-06-15 06:39] LABS: ALANINE AMINOTRANSFERASE 14 U/L (12-78); ALBUMIN 1.7 G/DL (3.4-5.0); ALBUMIN/GLOBULIN RATIO 0.4 (1.1-1.5); ALKALINE PHOSPHATASE 73 IU/L (46-116); ANION GAP 4 (8-16); ASPARTATE AMINO TRANSFERASE 20 U/L (10-37); BILIRUBIN,TOTAL 0.4 MG/DL (0.1-1.0); BLOOD UREA NITROGEN 10 MG/DL (7-18); BUN/CREATININE RATIO 20.4 (10.0-20.0); CALCIUM 7.9 MG/DL (8.5-10.1); CHLORIDE 103 MMOL/L (99-107); CREATININE 0.49 MG/DL (0.40-0.90); GLUCOSE 112 MG/DL (70-104); SODIUM 134 MMOL/L (135-145); TOTAL CARBON DIOXIDE 26.8 MMOL/L (24-32); TOTAL PROTEIN 5.9 G/DL (6.4-8.2); eCRCL 92 ML/MIN; eGFR > 90 ML/MIN
[2024-06-15] MEDS: LORazepam 1 MG tablet NG SCH (07:32)
[2024-06-15] MEDS ORDERED: VANCOMYCIN LEVEL IV ONE (22:30)
[2024-06-16 06:00] VITALS: BP 140/75; PULSE 104; RESP 20; TEMP 98; O2SAT 95
[2024-06-16 06:01] LABS: BASOPHILS # (AUTO) 0.1 X10'3 (0-0.2); BASOPHILS % (AUTO) 0.8 % (0-1); EOSINOPHILS # (AUTO) 0.2 X10'3 (0-0.9); EOSINOPHILS % (AUTO) 1.8 % (0-6); HEMATOCRIT 27.6 % (35.0-45.0); HEMOGLOBIN 9.4 g/dl (12.0-16.0); LYMPHOCYTES # (AUTO) 2.1 X10'3 (1.1-4.8); LYMPHOCYTES % (AUTO) 17.8 % (21-51); MEAN CORPUSCULAR HEMOGLOBIN 30.4 PG (27.0-31.0); MEAN CORPUSCULAR HGB CONC 33.9 g/dL (33.0-36.5); MEAN CORPUSCULAR VOLUME 89.7 FL (78-98); MEAN PLATELET VOLUME 7.2 FL (7.4-10.4); MONOCYTES # (AUTO) 0.8 X10'3 (0-0.9); NEUTROPHILS # (AUTO) 8.4 X10'3 (1.8-7.7); NEUTROPHILS % (AUTO) 72.6 % (42-75); PLATELET COUNT 436 X10'3 (140-440); RED BLOOD COUNT 3.08 X10'6 (4.20-5.60); RED CELL DISTRIBUTION WIDTH 14.5 % (11.5-14.5); WHITE BLOOD COUNT 11.5 X10'3 (4.5-11.0)
[2024-06-16 06:33] LABS: ALANINE AMINOTRANSFERASE 23 U/L (12-78); ALBUMIN 1.8 G/DL (3.4-5.0); ALBUMIN/GLOBULIN RATIO 0.4 (1.1-1.5); ALKALINE PHOSPHATASE 71 IU/L (46-116); ANION GAP 6 (8-16); ASPARTATE AMINO TRANSFERASE 34 U/L (10-37); BILIRUBIN,TOTAL 0.3 MG/DL (0.1-1.0); BLOOD UREA NITROGEN 5 MG/DL (7-18); BUN/CREATININE RATIO 10.9 (10.0-20.0); CALCIUM 8.4 MG/DL (8.5-10.1); CHLORIDE 103 MMOL/L (99-107); CREATININE 0.46 MG/DL (0.40-0.90); GLUCOSE 119 MG/DL (70-104); POTASSIUM 4.1 MMOL/L (3.5-5.1); SODIUM 134 MMOL/L (135-145); TOTAL CARBON DIOXIDE 24.7 MMOL/L (24-32); TOTAL PROTEIN 6.2 G/DL (6.4-8.2); eCRCL 98 ML/MIN; eGFR > 90 ML/MIN
[2024-06-16 10:00] VITALS: BP 137/62; PULSE 102; RESP 20; TEMP 98; O2SAT 98
[2024-06-16 18:00] VITALS: BP 123/66; PULSE 117; RESP 20; TEMP 98.2; O2SAT 89
[2024-06-16 20:22] VITALS: PULSE 117; RESP 24; O2SAT 90
[2024-06-16 20:30] VITALS: RESP 18
[2024-06-16 22:00] VITALS: BP 113/69; PULSE 113; RESP 19; TEMP 97.7; O2SAT 93
[2024-06-17 06:00] VITALS: BP 118/66; PULSE 109; RESP 16; TEMP 98.7; O2SAT 93
[2024-06-17 10:00] VITALS: BP 111/66; PULSE 85; RESP 20; TEMP 98; O2SAT 98
[2024-06-17 10:03] VITALS: PULSE 99; RESP 20; O2SAT 96
[2024-06-17 18:00] VITALS: BP 112/60; PULSE 96; RESP 16; TEMP 98.8; O2SAT 99
[2024-06-17 22:00] VITALS: BP 122/49; PULSE 96; RESP 15; TEMP 98.2; O2SAT 99
[2024-06-18] VITALS (7 sets, daily range): BP systolic 108–124; BP diastolic 61–64; PULSE 83–96; RESP 12–20; TEMP 97.6–98.7; O2SAT 87–98
[2024-06-18 19:20] LABS: BASOPHILS # (AUTO) 0.1 X10'3 (0-0.2); BASOPHILS % (AUTO) 0.8 % (0-1); EOSINOPHILS # (AUTO) 0.1 X10'3 (0-0.9); EOSINOPHILS % (AUTO) 0.8 % (0-6); HEMATOCRIT 25.6 % (35.0-45.0); HEMOGLOBIN 8.6 g/dl (12.0-16.0); LYMPHOCYTES # (AUTO) 1.8 X10'3 (1.1-4.8); LYMPHOCYTES % (AUTO) 14.5 % (21-51); MEAN CORPUSCULAR HEMOGLOBIN 30.1 PG (27.0-31.0); MEAN CORPUSCULAR HGB CONC 33.8 g/dL (33.0-36.5); MEAN CORPUSCULAR VOLUME 88.9 FL (78-98); MEAN PLATELET VOLUME 6.4 FL (7.4-10.4); MONOCYTES # (AUTO) 0.7 X10'3 (0-0.9); MONOCYTES % (AUTO) 5.6 % (2-12); NEUTROPHILS # (AUTO) 9.7 X10'3 (1.8-7.7); NEUTROPHILS % (AUTO) 78.3 % (42-75); PLATELET COUNT 515 X10'3 (140-440); RED BLOOD COUNT 2.88 X10'6 (4.20-5.60); RED CELL DISTRIBUTION WIDTH 14.5 % (11.5-14.5); WHITE BLOOD COUNT 12.4 X10'3 (4.5-11.0)
[2024-06-18 19:31] LABS: ALBUMIN 1.8 G/DL (3.4-5.0); ANION GAP 5 (8-16); BILIRUBIN,TOTAL 0.3 MG/DL (0.1-1.0); BLOOD UREA NITROGEN 3 MG/DL (7-18); BUN/CREATININE RATIO 6.1 (10.0-20.0); CALCIUM 8.3 MG/DL (8.5-10.1); CHLORIDE 101 MMOL/L (99-107); CREATININE 0.49 MG/DL (0.40-0.90); GLUCOSE 120 MG/DL (70-104); POTASSIUM 4.2 MMOL/L (3.5-5.1); SODIUM 132 MMOL/L (135-145); TOTAL CARBON DIOXIDE 26.5 MMOL/L (24-32); TOTAL PROTEIN 5.9 G/DL (6.4-8.2); eCRCL 92 ML/MIN; eGFR > 90 ML/MIN
[2024-06-18 19:32] LABS: ALANINE AMINOTRANSFERASE 29 U/L (12-78); ALBUMIN/GLOBULIN RATIO 0.4 (1.1-1.5); ALKALINE PHOSPHATASE 63 IU/L (46-116); ASPARTATE AMINO TRANSFERASE 29 U/L (10-37)
[2024-06-18 19:40] LABS: TOTAL CELLS COUNTED 100
[2024-06-19 06:00] VITALS: BP 126/71; PULSE 103; RESP 15; TEMP 97.9; O2SAT 91
[2024-06-19 10:00] VITALS: BP 134/77; PULSE 99; RESP 16; TEMP 98.1; O2SAT 94
[2024-06-19] MEDS: ringers solution, lacted 1,000 ML IV SCH (16:26)
[2024-06-19 18:00] VITALS: BP 122/75; PULSE 102; RESP 16; TEMP 97.3; O2SAT 96
[2024-06-19 20:00] VITALS: O2SAT 89
[2024-06-19 22:00] VITALS: BP 125/70; PULSE 106; PULSE 89; RESP 14; RESP 20; TEMP 99.2; O2SAT 89; O2SAT 90
[2024-06-20 06:00] VITALS: BP 122/70; PULSE 104; RESP 16; TEMP 99.5; O2SAT 90
[2024-06-20 10:00] VITALS: BP 123/70; PULSE 103; RESP 22; TEMP 98.5; O2SAT 91
[2024-06-20 11:15] VITALS: RESP 22; O2SAT 91
[2024-06-20 18:00] VITALS: BP 134/80; PULSE 98; RESP 19; TEMP 97.5; O2SAT 94
[2024-06-20] MEDS: metroNIDAZOLE-Flagyl 500mg/NS 100 ML IV SCH (19:44)
[2024-06-20 20:00] VITALS: RESP 16; O2SAT 98
[2024-06-20 20:23] VITALS: PULSE 98; RESP 20; O2SAT 96
[2024-06-21 06:57] VITALS: BP 125/74; PULSE 91; RESP 14; TEMP 98.2; O2SAT 98
[2024-06-21] MEDS ORDERED: levoTHYROXINE 25mcg tablet NG SCH (07:33)
[2024-06-21 08:00] VITALS: RESP 16
[2024-06-21] MEDS: levoTHYROXINE 25mcg tablet NG SCH (09:41)
[2024-06-21 10:17] VITALS: BP 121/63; PULSE 89; RESP 11; TEMP 98.2; O2SAT 97
[2024-06-21 18:00] VITALS: BP 108/64; PULSE 85; RESP 22; TEMP 98.3; O2SAT 95
[2024-06-21 20:00] VITALS: RESP 22; O2SAT 97
[2024-06-21 22:00] VITALS: BP 110/61; PULSE 90; RESP 18; TEMP 97.3; O2SAT 99
[2024-06-22 06:00] VITALS: BP 115/61; PULSE 97; RESP 18; TEMP 97.9; O2SAT 97
[2024-06-22 07:42] VITALS: RESP 16; O2SAT 97
[2024-06-22 08:28] VITALS: PULSE 81; RESP 24; O2SAT 98
[2024-06-22] MEDS ORDERED: acetaminophen 325mg tablet PO PRN (12:15)
[2024-06-22] MEDS: morphine 10mg/ml inj. IV PRN (13:32)
[2024-06-22] MEDS: LORazepam 2 mg/ml vial IV PRN (13:32)
[2024-06-22] MEDS: sennosides/docusate sodium tablet PO SCH (19:49)
[2024-06-22] MEDS: docusate sod 100mg capsule PO SCH (19:49)
[2024-06-22 20:00] VITALS: RESP 18; O2SAT 92
[2024-06-22 22:00] VITALS: BP 112/70; PULSE 101; RESP 18; TEMP 98.2; O2SAT 92
[2024-06-23 08:00] VITALS: RESP 24; O2SAT 92
[2024-06-23] MEDS ORDERED: mineral oil 133ml enema RC PRN (14:55)
[2024-06-23] MEDS: bisacodyl 10mg suppository rectal RC STA (15:00)
[2024-06-23] MEDS ORDERED: bisacodyl 10mg suppository rectal RC PRN (15:00)
[2024-06-23 18:04] VITALS: BP 100/55; PULSE 88; RESP 22; TEMP 96.3; O2SAT 95
[2024-06-23] MEDS: morphine 10mg/0.5ml (conc. morphine) oral syringe PO PRN (21:25)
[2024-06-23 22:00] VITALS: BP 123/72; PULSE 95; RESP 15; TEMP 97.9; O2SAT 99
[2024-06-24 10:00] VITALS: BP 164/81; PULSE 110; RESP 18; TEMP 98; O2SAT 92
[2024-06-24 22:00] VITALS: BP 135/65; PULSE 103; RESP 23; TEMP 98; O2SAT 90
[2024-06-25 08:00] VITALS: BP 94/57; PULSE 81; RESP 14; TEMP 97.5; O2SAT 92
[2024-06-25 20:00] VITALS: RESP 10; O2SAT 72
[2024-06-26] MEDS: atropine sulfate 1% ophthalmic drops SL PRN (01:07)
[2024-06-26 06:00] VITALS: BP 109/61; PULSE 99; RESP 11; TEMP 98; O2SAT 86
[2024-06-26 08:00] VITALS: RESP 10; O2SAT 72
[2024-06-26 18:00] VITALS: BP 94/57; PULSE 87; RESP 18; TEMP 98.4; O2SAT 92
[2024-06-26 20:00] VITALS: RESP 18; O2SAT 92
[2024-06-27 06:00] VITALS: BP 98/59; PULSE 86; RESP 14; TEMP 98.7; O2SAT 96
[2024-06-27 08:30] VITALS: RESP 16; O2SAT 96
[2024-06-27 13:17] VITALS: RESP 14
== END 2024-06-27 14:15 | disposition hospice, inpatient (51) | DRG 682 ==
LOC: ER 00:45 → ED HOLD 03:57 → ORTHO 4S 17:00
PROVIDERS: ADMIT Student in an Organized Health Care Education/Training Program; ATTEND Nurse Practitioner Family
PROC: 4A00X4Z Measurement of Central Nervous Electrical Activity, External Approach (ICD-10-PCS; 2024-06-03)
PROC: BW241ZZ Computerized Tomography (CT Scan) of Chest and Abdomen using Low Osmolar Contrast (ICD-10-PCS; principal; 2024-06-12)
DX: N17.9 Acute kidney failure, unspecified (principal); J69.0 Pneumonitis due to inhalation of food and vomit; J96.00 Acute respiratory failure, unspecified whether with hypoxia or hypercapnia; G93.40 Encephalopathy, unspecified; E44.0 Moderate protein-calorie malnutrition; E87.1 Hypo-osmolality and hyponatremia; E86.0 Dehydration; R62.7 Adult failure to thrive; E87.6 Hypokalemia; E03.9 Hypothyroidism, unspecified; Z51.5 Encounter for palliative care; Z66 Do not resuscitate; Z90.710 Acquired absence of both cervix and uterus; F22 Delusional disorders; I10 Essential (primary) hypertension; R13.10 Dysphagia, unspecified; Z68.28 Body mass index [BMI] 28.0-28.9, adult; F03.C0 Unspecified dementia, severe, without behavioral disturbance, psychotic disturbance, mood disturbance, and anxiety
CPT/HCPCS: 36415; 70450; 70551; 71045; 71260; 80053; 80202; 80305; 81001; 81003; 82948; 83605; 83735; 83880; 84100; 84132; 84134; 84145; 84443; 84484; 85007; 85025; 85610; 87040; 87081; 92508; 92616; 93005; 93306; 94760; 95816; 97110; 97161; 97530; 99285; A4314; A4615; A4624; A4649; A5200; A6213; A6250; A6258; A6449; G0378; J1644; J1956; J2060; J2270; J2274; J3370; J3372; J3411; J3480; J3490; J7030; J7040; J7042; J7050; J7120; Q9956; Q9967